=== PATIENT | female | born 1950 | race Caucasian/White ===

== ENCOUNTER → 2020-04-18 09:56 | Outpatient (BNVA) | payer MEDICARE, SELFPAY | PROVIDERS: PCP Internal Medicine; Visit Provider Surgery Vascular Surgery | DX: I83.11 Varicose veins of right lower extremity with inflammation (principal) | CPT/HCPCS: 99212 ==

== ENCOUNTER 2020-04-22 07:56 | Outpatient (REF) | payer MEDICARE, SELFPAY ==
--- NOTE | 2020-04-22 07:59 | US_ITS ---
EXAMINATION: BILATERAL LOWER EXTREMITY VENOUS ULTRASOUND (Reflux Exam) CLINICAL INDICATION: History of prior bilateral great saphenous venous closure in 2018 and 2019. COMPARISON: None. TECHNIQUE: Color flow triplex imaging and compression Doppler was performed to evaluate both the deep and the superficial systems bilaterally. To evaluate the superficial system, the examination was performed in the upright position. Color-flow Doppler ultrasound and compression ultrasound were utilized. In addition, maneuvers were utilized to demonstrate reflux. FINDINGS: 1. DEEP VENOUS ULTRASOUND OF THE RIGHT LOWER EXTREMITY: Common Femoral Vein: Compressible, normal respiratory variation and augmented flow. Femoral vein: Compressible, normal color flow and augmentation. Popliteal Vein: Compressible, normal augmentation. Deep Reflux: There is no evidence of reflux in the deep system in either the common femoral vein or the popliteal vein. . There is no evidence of a Fox's cyst. 2. SUPERFICIAL ULTRASOUND WITH DOPPLER OF RIGHT LOWER EXTREMITY GREAT SAPHENOUS VEIN: Saphenofemoral junction: 0.6 cm; No evidence of reflux. Proximal thigh: Occluded. Mid thigh: Occluded. Above knee: Occluded. At knee: 0.3 cm; No evidence of reflux. Below knee: 0.3 cm; greater than 3 seconds of reflux. Mid calf: 0.2 cm; better than 2.8 seconds of reflux. Ankle: 0.3 cm; No evidence of reflux. DUPLICATED GREAT SAPHENOUS VEIN: Medial, 0.4 cm at the junction, without reflux. SMALL SAPHENOUS VEIN: Saphenopopliteal junction: 0.5 cm; greater than 2.9 seconds of reflux. Mid calf: 0.4 cm; greater than 2.9 seconds of reflux. Distal calf: 0.2 cm; No evidence of reflux. VEIN OF GIACOMINI: None Imaged. PERFORATORS: Proximal calf, 0.2 cm, greater than 2.8 seconds of reflux. VARICOSITIES: Midcalf, 0.4 cm, no reflux. 3. DEEP VENOUS ULTRASOUND OF THE LEFT LOWER EXTREMITY: Common Femoral Vein: Compressible, normal respiratory variation and augmented flow. Femoral vein: Compressible, normal color flow and augmentation. Popliteal Vein: Compressible, normal augmentation. Deep Reflux: There is no evidence of reflux in the deep system in either the common femoral vein or the popliteal vein. There is no evidence of a Fox's cyst. 4. SUPERFICIAL ULTRASOUND WITH DOPPLER OF LEFT LOWER EXTREMITY GREAT SAPHENOUS VEIN: Saphenofemoral junction: 0.6 cm; greater than 2.3 seconds of reflux. Proximal thigh: 0.3 cm; greater than 1.7 seconds of reflux. Mid thigh: 0.7 cm; partially occluded. Above knee: 0.5 cm; greater than 2.9 seconds of reflux. At knee: 0.5 cm; greater than 3.1 seconds of reflux. Below knee: 0.6 cm; greater than 3.0 seconds of reflux. Mid calf: 0.4 cm; greater than 1.9 seconds of reflux. Ankle: 0.3 cm; greater than 2.4 seconds of reflux. DUPLICATED GREAT SAPHENOUS VEIN: Medial, 0.3 cm at the junction, no reflux. SMALL SAPHENOUS VEIN: Saphenopopliteal junction: 0.5 cm; greater than 3.1 seconds of reflux. Mid calf: 0.2 cm; greater than 2.8 seconds of reflux. Distal calf: 0.2 cm; No evidence of reflux. VEIN OF GIACOMINI: None Imaged. PERFORATORS: Midcalf arising from the distal SSV, 0.2 cm, no reflux. Proximal calf, 0.2 cm, no reflux. Proximal calf, 0.4 cm, no reflux. VARICOSITIES: None Imaged. US/US venous duplex LE BI IMPRESSION: 1. Venous reflux within the distal right great saphenous vein, below the knee and at the level of the midcalf. 2. Gross venous insufficiency throughout the left great saphenous vein. 3. Bilateral small saphenous venous insufficiency. 4. No evidence of DVT.
== END 2020-04-22 07:57 | disposition home or self-care (01) ==
LOC: HO.US 07:56
PROVIDERS: PCP Internal Medicine; Visit Provider Surgery Vascular Surgery
DX: I83.11 Varicose veins of right lower extremity with inflammation (principal)
CPT/HCPCS: 93970

== ENCOUNTER 2020-05-07 07:51 | Outpatient (REF) | payer MEDICARE, SELFPAY ==
[2020-05-07 11:37] LABS: D Dimer < 200 NG/ML
== END 2020-05-07 07:52 | disposition home or self-care (01) ==
LOC: HO.HMGCLDS 07:51
PROVIDERS: PCP Internal Medicine; Visit Provider Internal Medicine
DX: I83.12 Varicose veins of left lower extremity with inflammation (principal); I83.11 Varicose veins of right lower extremity with inflammation
CPT/HCPCS: 36415; 85379

== ENCOUNTER → 2020-05-09 10:56 | Outpatient (BNVA) | payer MEDICARE, SELFPAY | PROVIDERS: PCP Internal Medicine; Visit Provider Surgery Vascular Surgery | DX: I83.12 Varicose veins of left lower extremity with inflammation (principal) | CPT/HCPCS: 99212 ==

== ENCOUNTER → 2020-05-24 08:12 | Outpatient (BNVA) | payer MEDICARE, SELFPAY | PROVIDERS: PCP Internal Medicine; Visit Provider Surgery Vascular Surgery | DX: I83.12 Varicose veins of left lower extremity with inflammation (principal) | CPT/HCPCS: 36475 ==

== ENCOUNTER 2020-05-27 13:40 | Outpatient (REF) | payer MEDICARE, SELFPAY ==
--- NOTE | 2020-05-27 | US_ITS ---
EXAMINATION: US VENOUS ULTRASOUND WITH DOPPLER LOWER EXTREMITY, LEFT CLINICAL INFORMATION: Post left leg RFA. Rule out DVT. COMPARISON: Previous exams most recent April 2020 TECHNIQUE: Ultrasound of the deep veins is performed from the hip to the calf with compression sonography and color and pulse Doppler assessment. Spectral analysis with color-flow imaging is performed. FINDINGS: There is normal venous compression and respiratory variation and augmented flow. The visualized common femoral vein, superficial femoral vein, profunda femoral vein, popliteal vein, and the trifurcation region shows no evidence of deep venous thrombosis. There is echogenic material seen in the left greater saphenous vein 1.5 cm from the saphenofemoral junction post RFA procedure. There is no significant popliteal fossa cyst. US/US venous duplex LE LT IMPRESSION: No DVT demonstrated in the left lower extremity.
== END 2020-05-27 13:41 | disposition home or self-care (01) ==
LOC: HO.US 13:40
PROVIDERS: Visit Provider Surgery Vascular Surgery
DX: M79.605 Pain in left leg (principal)
CPT/HCPCS: 93971

== ENCOUNTER 2020-06-06 09:43 | Outpatient (REF) | payer OTHER, SELFPAY ==
[2020-06-06 11:29] LABS: Estimated Average Glucose 148 mg/dL; Hemoglobin A1c % 6.8 %
[2020-06-06 12:12] LABS: Alanine Aminotransferase 17 U/L (0-31); Albumin Level 4.4 g/dL (3.5-5.0); Alkaline Phosphatase 46 U/L (39-117); Anion Gap 15 (12-20); Aspartate Amino Transferase 15 U/L (5-31); Bilirubin Total 0.7 mg/dL (0.0-1.0); Blood Urea Nitrogen 22 mg/dL (9-16); Calcium 9.5 mg/dL (8.4-10.2); Carbon Dioxide 28 mmol/L (22-29); Chloride 103 mmol/L (96-108); Cholesterol 130 mg/dL; Estimated Glomerular Filt Rate 48; Glucose Fasting 155 mg/dL (60-99); HDL Cholesterol 42 mg/dL; LDL Cholesterol Calculated 59 mg/dl; Potassium 4.7 mmol/l (3.3-5.1); Sodium 141 mmol/L (135-145); Total Protein 7.3 g/dL (6.5-8.0); Triglycerides 148 mg/dL
[2020-06-06 12:27] LABS: Creatinine Urine 92.48 mg/dL; Microalbum/Creatinine Ratio Ur 6.4 ug/mg cr
== END 2020-06-06 09:44 | disposition home or self-care (01) ==
LOC: HO.HMGCLDS 09:43
PROVIDERS: PCP Internal Medicine; Visit Provider Internal Medicine
DX: I83.12 Varicose veins of left lower extremity with inflammation (principal); E11.9 Type 2 diabetes mellitus without complications; I10 Essential (primary) hypertension; E78.5 Hyperlipidemia, unspecified; Z88.8 Allergy status to other drugs, medicaments and biological substances; Z98.890 Other specified postprocedural states
CPT/HCPCS: 36415; 80053; 80061; 82043; 83036; 99212

== ENCOUNTER 2020-09-04 08:05 | Outpatient (REF) | payer OTHER, SELFPAY ==
[2020-09-04 12:06] LABS: Alanine Aminotransferase 17 U/L (0-31); Albumin Level 4.2 g/dL (3.5-5.0); Alkaline Phosphatase 49 U/L (39-117); Anion Gap 15 (12-20); Aspartate Amino Transferase 13 U/L (5-31); Bilirubin Total 0.6 mg/dL (0.0-1.0); Blood Urea Nitrogen 17 mg/dL (9-16); Calcium 9.6 mg/dL (8.4-10.2); Carbon Dioxide 27 mmol/L (22-29); Chloride 103 mmol/L (96-108); Estimated Glomerular Filt Rate 48; Glucose Fasting 161 mg/dL (60-99); Potassium 4.8 mmol/L (3.3-5.1); Sodium 140 mmol/L (135-145); Total Protein 7.2 g/dL (6.5-8.0)
[2020-09-04 12:33] LABS: Estimated Average Glucose 146 mg/dL; Hemoglobin A1c % 6.7 %
== END 2020-09-04 08:06 | disposition home or self-care (01) ==
LOC: HO.HMGCLDS 08:05
PROVIDERS: PCP Internal Medicine; Visit Provider Internal Medicine
DX: E11.9 Type 2 diabetes mellitus without complications (principal); I10 Essential (primary) hypertension
CPT/HCPCS: 36415; 80053; 83036

== ENCOUNTER 2020-12-05 08:01 | Outpatient (REF) | payer OTHER, SELFPAY ==
[2020-12-05 11:43] LABS: Creatinine Urine 35.66 mg/dL; Microalbumin Urine < 5.0 mg/L
[2020-12-05 11:51] LABS: Hematocrit 39.9 % (37-47); Hemoglobin 12.6 g/dl (12.0-16.0); Mean Corpuscular HGB Conc 31.6 g/dl (31.0-35.0); Mean Corpuscular Hemoglobin 28.3 pg (27.0-33.0); Mean Corpuscular Volume 89.5 fL (80-98); Mean Platelet Volume 10.6 fL (9.4-12.3); Platelet Count 195 X10*3/uL (160-400); Red Blood Count 4.46 X10*6/uL (4.20-5.50); Red Cell Distribution Width 13.6 % (11.0-16.0); White Blood Count 6.4 X10*3/uL (4.8-10.8)
[2020-12-05 11:54] LABS: Estimated Average Glucose 146 mg/dL; Hemoglobin A1c % 6.7 %
[2020-12-05 12:06] LABS: Alanine Aminotransferase 16 U/L (0-31); Albumin Level 3.9 g/dL (3.5-5.0); Alkaline Phosphatase 45 U/L (39-117); Anion Gap 12 (12-20); Aspartate Amino Transferase 15 U/L (5-31); Bilirubin Total 0.7 mg/dL (0.0-1.0); Blood Urea Nitrogen 11 mg/dL (9-16); Calcium 9.5 mg/dL (8.4-10.2); Carbon Dioxide 26 mmol/L (22-29); Chloride 108 mmol/L (96-108); Cholesterol 157 mg/dL; Estimated Glomerular Filt Rate 56; Glucose Fasting 135 mg/dL (60-99); HDL Cholesterol 43 mg/dL; LDL Cholesterol Calculated 86 mg/dl; Potassium 4.3 mmol/L (3.3-5.1); Sodium 142 mmol/L (135-145); Total Protein 6.7 g/dL (6.5-8.0); Triglycerides 142 mg/dL
== END 2020-12-05 08:02 | disposition home or self-care (01) ==
LOC: HO.HMGCLDS 08:01
PROVIDERS: PCP Internal Medicine; Visit Provider Internal Medicine
DX: E11.9 Type 2 diabetes mellitus without complications (principal); E78.5 Hyperlipidemia, unspecified; I10 Essential (primary) hypertension
CPT/HCPCS: 36415; 80053; 80061; 82043; 83036; 85027

== ENCOUNTER 2020-12-17 12:57 | Outpatient (REF) | payer OTHER, SELFPAY ==
--- NOTE | ~2020-12-17 | MM_ITS ---
EXAMINATION: MM SCREENING DIGITAL BREAST TOMOSYNTHESIS, BILATERAL CLINICAL INFORMATION: Screening. Asymptomatic. The lifetime risk of breast cancer based on the Tyrer-Cuzick Model is 6%. COMPARISON: Mammography: 12/12/2019, 09/11/2017, 08/18/2016 TECHNIQUE: Digital breast tomosynthesis is performed in both the craniocaudal and mediolateral oblique views along with computer-aided detection (CAD). Synthesized 2D images are generated from the tomosynthesis. FINDINGS: There are scattered areas of fibroglandular density (ACR BI-RADS breast composition Category b). There are no significant masses, abnormal calcifications, or other abnormalities. Parenchymal pattern is similar to prior studies. No developing density. No significant changes. MM/MM tomosynthesis screening BI IMPRESSION: No mammographic evidence of malignancy. ASSESSMENT: BI-RADS 1: Negative RECOMMENDATION: Routine annual mammography screening. This patient's information was entered into a reminder system with a target due date for their next mammogram.
== END 2020-12-17 12:58 | disposition home or self-care (01) ==
LOC: HO.MAMMO 12:57
PROVIDERS: Visit Provider Internal Medicine
DX: Z12.31 Encounter for screening mammogram for malignant neoplasm of breast (principal)
CPT/HCPCS: 77063; 77067

== ENCOUNTER 2021-03-14 08:43 | Outpatient (REF) | payer OTHER, SELFPAY ==
[2021-03-14 12:04] LABS: Estimated Average Glucose 148 mg/dL; Hemoglobin A1c % 6.8 %
[2021-03-14 12:06] LABS: Alanine Aminotransferase 17 U/L (0-31); Albumin Level 4.1 g/dL (3.5-5.0); Alkaline Phosphatase 50 U/L (39-117); Anion Gap 14 (12-20); Aspartate Amino Transferase 16 U/L (5-31); Blood Urea Nitrogen 16 mg/dL (9-16); Calcium 9.4 mg/dL (8.4-10.2); Carbon Dioxide 25 mmol/L (22-29); Chloride 105 mmol/L (96-108); Cholesterol 162 mg/dL; Estimated Glomerular Filt Rate 47; Glucose Fasting 156 mg/dL (60-99); HDL Cholesterol 40 mg/dL; LDL Cholesterol Calculated 81 mg/dl; Potassium 4.4 mmol/L (3.3-5.1); Sodium 140 mmol/L (135-145); Total Protein 7.1 g/dL (6.5-8.0); Triglycerides 207 mg/dL
[2021-03-14 12:34] LABS: Creatinine Urine 45.96 mg/dL; Microalbumin Urine < 5.0 mg/L
== END 2021-03-14 08:44 | disposition home or self-care (01) ==
LOC: HO.HMGCLDS 08:43
PROVIDERS: PCP Internal Medicine; Visit Provider Internal Medicine
DX: E78.5 Hyperlipidemia, unspecified (principal); I10 Essential (primary) hypertension; E11.9 Type 2 diabetes mellitus without complications
CPT/HCPCS: 36415; 80053; 80061; 82043; 83036

== ENCOUNTER 2021-07-11 08:20 | Outpatient (REF) | payer OTHER, SELFPAY ==
[2021-07-11 12:02] LABS: Creatinine Urine 45.86 mg/dL; Microalbumin Urine < 5.0 mg/L
[2021-07-11 12:05] LABS: Alanine Aminotransferase 17 U/L (0-31); Albumin Level 4.2 g/dL (3.5-5.0); Alkaline Phosphatase 53 U/L (39-117); Anion Gap 14 (12-20); Aspartate Amino Transferase 16 U/L (5-31); Bilirubin Total 0.9 mg/dL (0.0-1.0); Blood Urea Nitrogen 20 mg/dL (9-16); Calcium 10.2 mg/dL (8.4-10.2); Carbon Dioxide 28 mmol/L (22-29); Chloride 100 mmol/L (96-108); Cholesterol 139 mg/dL; Estimated Glomerular Filt Rate 47; Glucose Fasting 160 mg/dL (60-99); HDL Cholesterol 38 mg/dL; LDL Cholesterol Calculated 64 mg/dl; Sodium 137 mmol/L (135-145); Total Protein 7.4 g/dL (6.5-8.0); Triglycerides 185 mg/dL
[2021-07-11 12:08] LABS: Estimated Average Glucose 157 mg/dL; Hemoglobin A1c % 7.1 %
== END 2021-07-11 08:21 | disposition home or self-care (01) ==
LOC: HO.HMGCLDS 08:20
PROVIDERS: Visit Provider Internal Medicine
DX: E11.9 Type 2 diabetes mellitus without complications (principal); I10 Essential (primary) hypertension; E78.5 Hyperlipidemia, unspecified
CPT/HCPCS: 36415; 80053; 80061; 82043; 83036

== ENCOUNTER 2021-12-19 09:47 | Outpatient (REF) | payer OTHER, SELFPAY ==
--- NOTE | ~2021-12-19 | MM_ITS ---
EXAMINATION: MM SCREENING DIGITAL BREAST TOMOSYNTHESIS, BILATERAL CLINICAL INFORMATION: Screening. Asymptomatic. The lifetime risk of breast cancer based on the Tyrer-Cuzick Model is 6%. COMPARISON: Mammography: 12/17/2020, 12/12/2019, 09/11/2017 TECHNIQUE: Digital breast tomosynthesis is performed in both the craniocaudal and mediolateral oblique views along with computer-aided detection (CAD). Synthesized 2D images are generated from the tomosynthesis. Additional left CC view is provided. FINDINGS: There are scattered areas of fibroglandular density (ACR BI-RADS breast composition Category b). There is no significant mass and no architectural abnormality or developing density or abnormal calcifications. The axilla are unremarkable. There is mild chronic nipple retraction as before. No skin thickening. No significant changes. MM/MM tomosynthesis screening BI IMPRESSION: No significant changes from prior studies. ASSESSMENT: BI-RADS 2: Benign RECOMMENDATION: Routine annual mammography screening. This patient's information was entered into a reminder system with a target due date for their next mammogram.
== END 2021-12-19 09:48 | disposition home or self-care (01) ==
LOC: HO.MAMMO 09:47
PROVIDERS: PCP Internal Medicine; Visit Provider Internal Medicine
DX: Z12.31 Encounter for screening mammogram for malignant neoplasm of breast (principal)
CPT/HCPCS: 77063; 77067

== ENCOUNTER 2021-12-29 09:11 | Outpatient (REF) | payer OTHER, SELFPAY ==
[2021-12-29 11:37] LABS: Estimated Average Glucose 151 mg/dL; Hemoglobin A1c % 6.9 %
[2021-12-29 11:39] LABS: Appearance Urine Clear; Color Urine Yellow; Glucose Urine UA >=1000 mg/dL (Negative); Hematocrit 42.9 % (37.0-47.0); Leukocyte Esterase Urine Small (1+) (Negative); Mean Corpuscular HGB Conc 32.6 g/dl (31.0-35.0); Mean Corpuscular Hemoglobin 28.9 pg (27.0-33.0); Mean Corpuscular Volume 88.5 fL (80.0-98.0); Mean Platelet Volume 10.6 fL (9.4-12.3); Nitrite Urine Negative (Negative); Platelet Count 222 X10*3/uL (160-400); Red Blood Count 4.85 X10*6/uL (4.20-5.50); Red Cell Distribution Width 13.1 % (11.0-16.0); Urine Blood Negative (Negative); Urine Ketones Negative (Negative); Urine Protein Negative (Neg-Trace); White Blood Count 7.7 X10*3/uL (4.8-10.8)
[2021-12-29 11:57] LABS: Bacteria Urine None Seen (None Seen); Hyaline Casts Urine 0-2 /LPF (0-2); RBC Urine 0-2 /HPF (0-2); UACC Culture Trigger YES; WBC Urine 0-5 /HPF (0-5)
[2021-12-29 12:03] LABS: Alanine Aminotransferase 15 U/L (0-31); Albumin Level 4.1 g/dL (3.5-5.0); Alkaline Phosphatase 52 U/L (39-117); Anion Gap 16 (12-20); Aspartate Amino Transferase 14 U/L (5-31); Bilirubin Total 0.5 mg/dL (0.0-1.0); Blood Urea Nitrogen 20 mg/dL (9-16); Carbon Dioxide 25 mmol/L (22-29); Chloride 101 mmol/L (96-108); Cholesterol 162 mg/dL; Estimated Glomerular Filt Rate 48; Glucose Fasting 154 mg/dL (60-99); HDL Cholesterol 43 mg/dL; LDL Cholesterol Calculated 87 mg/dl; Potassium 5.1 mmol/L (3.3-5.1); Sodium 137 mmol/L (135-145); Total Protein 7.2 g/dL (6.5-8.0); Triglycerides 160 mg/dL
[2021-12-29 13:59] LABS: Creatinine Urine 73.14 mg/dL; Microalbumin Urine < 5.0 mg/L
== END 2021-12-29 09:12 | disposition home or self-care (01) ==
LOC: HO.HMGCLDS 09:11
PROVIDERS: PCP Internal Medicine; Visit Provider Internal Medicine
DX: E78.5 Hyperlipidemia, unspecified (principal); I10 Essential (primary) hypertension; E11.9 Type 2 diabetes mellitus without complications
CPT/HCPCS: 36415; 80053; 80061; 81001; 82043; 83036; 85027; 87086

== ENCOUNTER 2022-01-09 13:14 | Outpatient (REF) | payer OTHER, SELFPAY ==
--- NOTE | ~2022-01-09 | MM_ITS ---
EXAMINATION: BONE DENSITOMETRY CLINICAL INDICATION: Asymptomatic menopausal state. COMPARISON: None (current study represents initial baseline exam). TECHNIQUE: Using a FAB BAG DXA System (software version: 13.1) manufactured by [employer], dual-energy x-ray absorptiometry was performed of the lumbar spine and left hip. The images are of good technical quality. Summary results are attached. FINDINGS: AP SPINE L1-L3 (excluding L4): The data of L1-L4 has been changed to exclude the L4 vertebral body, because degenerative changes at this level may cause overestimation of lumbar spine density. BMD 1.119 g/cm2, Z-score 1.2, T-score -0.4, normal. LEFT FEMUR, NECK: BMD 0.836 g/cm2, Z-score 0.2, T-score -1.5, osteopenia. LEFT FEMUR, TOTAL: BMD 0.957 g/cm2, Z-score 1.1, T-score -0.4, normal. IDENTIFIED RISK FACTORS: Menopause, height loss, thiazide. HISTORY OF FRACTURE: None listed. MEDICATIONS: Calcium supplements or multivitamin, vitamin D. MM/XR DEXA axial skeleton IMPRESSION: 1. DIAGNOSIS: Osteopenia based on the lowest T-score value of -1.5 in the femoral neck applying World Health Organization criteria. 2. 10-YEAR FRACTURE RISK PREDICTION, FRAX: Major osteoporotic fracture (clinical spine, forearm, hip or shoulder) 10.3%. Hip fracture 1.6%. 3. Treatment Recommendations: NOF guidelines recommend consideration for treatment in postmenopausal women and men age 50 and older presenting with the following: -A hip or vertebral (clinical or morphometric) fracture. -T-score less than or equal to -2.5 at the femoral neck or spine after appropriate evaluation to exclude secondary causes. -Low bone mass at the hip or spine and a 10-year fracture probability by FRAX of greater than or equal to 3% for hip fracture or greater than or equal to 20% for major osteoporotic fracture based on the [place] adapted WHO algorithm. 4. Other Recommendations: All treatment decisions require clinical judgment and consideration of individual patient factors, including patient preferences, comorbidities, previous drug use, risk factors not captured in the FRAX model (e.g. frailty, falls, vitamin D deficiency, increased bone turnover, interval significant decline in bone density) and possible under or overestimation of fracture risk by FRAX. Additional medical evaluation for secondary cause of low bone mineral density may be appropriate. FUTURE SCAN RECOMMENDATION: People with diagnosed cases of osteoporosis or at high risk for fracture should have regular bone mineral density tests. For patients eligible for Medicare, routine testing is allowed once every 2 years. The testing frequency can be increased to one year for patients who have rapidly progressing disease, those who are receiving or discontinuing medical therapy to restore bone mass, or have additional risk factors.
== END 2022-01-09 13:15 | disposition home or self-care (01) ==
LOC: HO.MAMMO 13:14
PROVIDERS: PCP Internal Medicine; Visit Provider Internal Medicine
DX: Z13.820 Encounter for screening for osteoporosis (principal); Z78.0 Asymptomatic menopausal state
CPT/HCPCS: 77080

== ENCOUNTER → 2022-01-15 09:16 | Outpatient (BNVA) | payer OTHER, SELFPAY | PROVIDERS: PCP Internal Medicine; Visit Provider Surgery Vascular Surgery | DX: I83.12 Varicose veins of left lower extremity with inflammation (principal) | CPT/HCPCS: 99212 ==

== ENCOUNTER 2022-03-18 07:48 | Outpatient (REF) | payer OTHER, SELFPAY ==
--- NOTE | ~2022-03-18 | US_ITS ---
EXAMINATION: US VENOUS BILATERAL LOWER EXTREMITIES (REFLUX EXAM) CLINICAL INDICATION: Leg pain and varicose veins. History of bilateral VenaSeal procedures. COMPARISON: None TECHNIQUE: Color flow triplex imaging and compression Doppler was performed to evaluate both the deep and the superficial systems bilaterally. To evaluate the superficial system, the examination was performed in the upright position. Color-flow Doppler ultrasound and compression ultrasound were utilized. In addition, maneuvers were utilized to demonstrate reflux. FINDINGS: 1. DEEP VENOUS ULTRASOUND OF THE RIGHT LOWER EXTREMITY: Respiratory variation, normal compression and augmented flow are noted in the right common femoral vein as well as the right popliteal vein and there is no evidence of deep venous thrombosis at these locations. There is reflux of 2.8 seconds in the popliteal vein without reflux in the common femoral or femoral vein. There is no evidence of a Fox's cyst. 2. SUPERFICIAL ULTRASOUND WITH DOPPLER OF RIGHT LOWER EXTREMITY: The right great saphenous vein at the saphenofemoral junction measures 4.6 mm, at the proximal thigh 3.0 mm, at the mid thigh 1.4 mm, above the knee, occluded, at the knee 1.9 mm, gamtr-csv-cyrh 2.3 mm, midcalf 2.5 mm and at the ankle measures 3.1 mm. There is no reflux demonstrated in the right great saphenous vein. Duplicated Right Great Saphenous Vein: There is a 3.2 mm lateral saphenous vein that does not reflux. The right small saphenous vein measures 4.1 mm and demonstrates reflux from the mid calf downwards with reflux times of 3.5 seconds. Accessory Vein of Giacomini: None Incompetent Perforators: None Varices Present: None 3. DEEP VENOUS ULTRASOUND OF THE LEFT LOWER EXTREMITY: Respiratory variation, normal compression and augmented flow are noted in the left common femoral vein as well as the left popliteal vein and there is no evidence of deep venous thrombosis at these locations. There is no evidence of reflux in the deep system in either the common femoral vein or the popliteal vein. There is no evidence of a Fox's cyst. 4. SUPERFICIAL ULTRASOUND WITH DOPPLER OF LEFT LOWER EXTREMITY: Left great saphenous vein at the saphenofemoral junction measures 4.5 mm, at the proximal thigh 4.5 mm, at the mid thigh occluded, above the knee 4.0 mm, at the knee 4.0 mm, vcddi-iht-piop 4.9 mm, midcalf 3.3 mm and at the ankle measures 2.3 mm. Segmental reflux is present above the knee for 3.5 seconds and at the ankle for 2.5 seconds. Duplicated Left Great Saphenous Vein: There is a lateral accessory saphenous measuring 3.2 mm without reflux. The left small saphenous vein measures 4.0 mm and shows no reflux. Accessory Vein of Giacomini: None Incompetent Perforators: None Varices Present: Varicosities are present in the calf measuring up to 5 mm in size which demonstrate 3.4 seconds of reflux. US/US venous duplex LE BI IMPRESSION: 1. No DVT but there is reflux in the deep venous system on the right in the popliteal vein. Left deep venous system unremarkable. 2. Segmental occlusions in the great saphenous veins status post ablation with segmental areas of reflux remaining as described above.
== END 2022-03-18 07:49 | disposition home or self-care (01) ==
LOC: HO.US 07:48
PROVIDERS: Visit Provider Surgery Vascular Surgery
DX: I83.12 Varicose veins of left lower extremity with inflammation (principal)
CPT/HCPCS: 93970

== ENCOUNTER → 2022-03-26 08:55 | Outpatient (BNVA) | payer OTHER, SELFPAY | PROVIDERS: PCP Internal Medicine; Visit Provider Surgery Vascular Surgery | DX: I83.11 Varicose veins of right lower extremity with inflammation (principal); I83.12 Varicose veins of left lower extremity with inflammation | CPT/HCPCS: 99212 ==

== ENCOUNTER 2022-04-06 07:44 | Outpatient (REF) | payer OTHER, SELFPAY ==
[2022-04-06 12:00] LABS: Estimated Average Glucose 154 mg/dL
[2022-04-06 12:28] LABS: Alanine Aminotransferase 18 U/L (0-31); Albumin Level 4.3 g/dL (3.5-5.0); Alkaline Phosphatase 58 U/L (39-117); Anion Gap 17 (12-20); Aspartate Amino Transferase 14 U/L (5-31); Bilirubin Total 0.9 mg/dL (0.0-1.0); Blood Urea Nitrogen 23 mg/dL (9-16); Calcium 9.8 mg/dL (8.4-10.2); Carbon Dioxide 24 mmol/L (22-29); Chloride 100 mmol/L (96-108); Estimated Glomerular Filt Rate 48; Glucose Fasting 173 mg/dL (60-99); Potassium 4.5 mmol/L (3.3-5.1); Sodium 136 mmol/L (135-145); Total Protein 7.4 g/dL (6.5-8.0)
== END 2022-04-06 07:45 | disposition home or self-care (01) ==
LOC: HO.HMGCLDS 07:44
PROVIDERS: PCP Internal Medicine; Visit Provider Internal Medicine
DX: E11.9 Type 2 diabetes mellitus without complications (principal)
CPT/HCPCS: 36415; 80053; 83036

== ENCOUNTER 2022-08-12 08:18 | Outpatient (REF) | payer OTHER, SELFPAY ==
[2022-08-12 11:20] LABS: MANUAL DIFF FLAG NO
[2022-08-12 11:44] LABS: Basophils Percent Auto 0.4 % (0-2); Eosinophils Absolute Auto 0.2 X10*3/uL (0.0-0.4); Eosinophils Percent Auto 3.1 % (0-4); Hematocrit 40.2 % (37.0-47.0); Hemoglobin 13.2 g/dl (12.0-16.0); Imm Gran Abs Auto 0.01 X10*3/uL (0.00-0.03); Imm Gran Pct Auto 0.1 % (0.0-0.4); Lymphocytes Percent Auto 29.3 % (20-40); Mean Corpuscular HGB Conc 32.8 g/dl (31.0-35.0); Mean Corpuscular Hemoglobin 28.9 pg (27.0-33.0); Mean Platelet Volume 10.4 fL (9.4-12.3); Monocytes Absolute Auto 0.5 X10*3/uL (0.1-1.2); Monocytes Percent Auto 6.9 % (2-11); Neutrophils Percent Auto 60.2 % (45-73); Platelet Count 232 X10*3/uL (160-400); Red Blood Count 4.57 X10*6/uL (4.20-5.50); Red Cell Distribution Width 13.4 % (11.0-16.0); White Blood Count 6.7 X10*3/uL (4.8-10.8)
[2022-08-12 11:51] LABS: Alanine Aminotransferase 15 U/L (0-31); Alkaline Phosphatase 44 U/L (39-117); Anion Gap 12 (12-20); Aspartate Amino Transferase 16 U/L (5-31); Bilirubin Total 0.8 mg/dL (0.0-1.0); Blood Urea Nitrogen 17 mg/dL (9-16); Calcium 9.5 mg/dL (8.4-10.2); Carbon Dioxide 26 mmol/L (22-29); Chloride 106 mmol/L (96-108); Cholesterol 145 mg/dL; Estimated Glomerular Filt Rate 55; Glucose Fasting 148 mg/dL (60-99); HDL Cholesterol 45 mg/dL; LDL Cholesterol Calculated 75 mg/dl; Potassium 4.8 mmol/L (3.3-5.1); Sodium 139 mmol/L (135-145); Total Protein 6.6 g/dL (6.5-8.0); Triglycerides 126 mg/dL
[2022-08-12 11:55] LABS: Estimated Average Glucose 151 mg/dL; Hemoglobin A1c % 6.9 %
[2022-08-12 12:33] LABS: Creatinine Urine 59.75 mg/dL; Microalbumin Urine < 5.0 mg/L
== END 2022-08-12 08:19 | disposition home or self-care (01) ==
LOC: HO.HMGCLDS 08:18
PROVIDERS: PCP Internal Medicine; Visit Provider Internal Medicine
DX: E11.9 Type 2 diabetes mellitus without complications (principal); E78.5 Hyperlipidemia, unspecified; I10 Essential (primary) hypertension
CPT/HCPCS: 36415; 80053; 80061; 82043; 83036; 85025

== ENCOUNTER 2023-01-15 08:24 | Outpatient (REF) | payer OTHER, SELFPAY ==
[2023-01-15 11:11] LABS: MANUAL DIFF FLAG NO
[2023-01-15 11:33] LABS: Basophils Percent Auto 0.4 % (0-2); Eosinophils Absolute Auto 0.1 X10*3/uL (0.0-0.4); Imm Gran Abs Auto 0.02 X10*3/uL (0.00-0.03); Imm Gran Pct Auto 0.3 % (0.0-0.4); Lymphocytes Absolute Auto 2.2 X10*3/uL (1.2-4.9); Lymphocytes Percent Auto 31.2 % (20-40); Mean Corpuscular HGB Conc 32.6 g/dl (31.0-35.0); Mean Corpuscular Hemoglobin 28.8 pg (27.0-33.0); Mean Corpuscular Volume 88.5 fL (80.0-98.0); Mean Platelet Volume 10.4 fL (9.4-12.3); Monocytes Absolute Auto 0.4 X10*3/uL (0.1-1.2); Monocytes Percent Auto 5.8 % (2-11); Neutrophils Absolute Auto 4.2 x10*3/uL (2.0-8.3); Neutrophils Percent Auto 60.3 % (45-73); Platelet Count 230 X10*3/uL (160-400); Red Blood Count 4.86 X10*6/uL (4.20-5.50); Red Cell Distribution Width 13.6 % (11.0-16.0)
[2023-01-15 11:48] LABS: Estimated Average Glucose 148 mg/dL; Hemoglobin A1c % 6.8 % (<6.0)
[2023-01-15 11:59] LABS: Alanine Aminotransferase 18 U/L (0-31); Alkaline Phosphatase 49 U/L (39-117); Anion Gap 12 (12-20); Aspartate Amino Transferase 15 U/L (5-31); Bilirubin Total 0.6 mg/dL (0.0-1.0); Blood Urea Nitrogen 15 mg/dL (9-16); Calcium 9.8 mg/dL (8.4-10.2); Carbon Dioxide 26 mmol/L (22-29); Chloride 105 mmol/L (96-108); Cholesterol 157 mg/dL (<200); Estimated Glomerular Filt Rate 50; Glucose Fasting 169 mg/dL (60-99); HDL Cholesterol 43 mg/dL (>40); LDL Cholesterol Calculated 72 mg/dL (<100); Potassium 4.3 mmol/L (3.3-5.1); Sodium 139 mmol/L (135-145); Total Protein 7.1 g/dL (6.5-8.0); Triglycerides 212 mg/dL (<150)
[2023-01-15 13:07] LABS: Microalbumin Urine < 5.0 mg/L
== END 2023-01-15 08:25 | disposition home or self-care (01) ==
LOC: HO.HMGCLDS 08:24
PROVIDERS: PCP Internal Medicine; Visit Provider Internal Medicine
DX: I10 Essential (primary) hypertension (principal); E11.9 Type 2 diabetes mellitus without complications; E78.5 Hyperlipidemia, unspecified
CPT/HCPCS: 36415; 80053; 80061; 82043; 82570; 83036; 85025

== ENCOUNTER 2023-01-16 09:47 | Outpatient (REF) | payer OTHER, SELFPAY ==
--- NOTE | ~2023-01-16 | MM_ITS ---
EXAMINATION: MM SCREENING DIGITAL BREAST TOMOSYNTHESIS, BILATERAL CLINICAL INFORMATION: Screening. Asymptomatic. COMPARISON: Mammography: This study is compared with prior exams dating back to 2017. TECHNIQUE: Digital breast tomosynthesis is performed in both the craniocaudal and mediolateral oblique views along with computer-aided detection (CAD). Synthesized 2D images are generated from the tomosynthesis. FINDINGS: There are scattered areas of fibroglandular density (ACR BI-RADS breast composition Category b). There are no significant masses, abnormal calcifications, or other abnormalities. There is chronic, bilateral, benign nipple inversion. MM/MM tomosynthesis screening BI IMPRESSION: No mammographic evidence of malignancy. ASSESSMENT: BI-RADS BI-RADS 1 - Negative RECOMMENDATION: Routine annual mammography screening. 1 year F/U This examination should not preclude the clinical evaluation of a suspicious palpable abnormality. This patient's information was entered into a reminder system with a target due date for their next mammogram.
== END 2023-01-16 09:48 | disposition home or self-care (01) ==
LOC: HO.MAMMO 09:47
PROVIDERS: PCP Internal Medicine; Visit Provider Internal Medicine
DX: Z12.31 Encounter for screening mammogram for malignant neoplasm of breast (principal)
CPT/HCPCS: 77063; 77067

== ENCOUNTER → 2023-01-16 10:00 | Outpatient (BNV) | payer OTHER, SELFPAY | PROVIDERS: PCP Internal Medicine; Visit Provider Radiology Diagnostic Radiology | DX: Z12.31 Encounter for screening mammogram for malignant neoplasm of breast (principal) | CPT/HCPCS: 77063; 77067 ==

== ENCOUNTER 2023-01-20 12:44 | Outpatient (AMB) | payer OTHER, SELFPAY ==
--- NOTE | 2023-01-20 12:47 | MHC.PC.OV ---
Vital Signs 01/20/23 12:48 Height 5 ft 3 in Weight 149 lb BMI 26.4 BP 122/74 Blood Pressure Location Lt brachial Position Sitting Pulse 62 Pulse Source Pulse Oximeter Pulse Oximetry (%) 95 Oxygen Delivery Method Room Air Intake Visit Reasons: Annual PE/DM 2 Intake Note: Pt is here today for PE. Allergies lisinopril Allergy (Unknown, Verified 01/20/23 12:50) Cough Medication List - Last Reconciled 01/20/23 by Marysol Jefferson MD amlodipine-olmesartan 5-20 mg 1 tab PO DAILY atorvastatin 40 mg PO DAILY blood sugar diagnostic (FreeStyle Lite Strips) 1 strip miscellaneous DAILY blood-glucose meter (FreeStyle Lite Meter kit) use device to test blood sugar twice daily dimethicone 1.5% (Remedy Skin Repair) 1 appl topically with each episode of incontinence care; empagliflozin-linagliptin 25-5 mg (Glyxambi) 1 tab PO DAILY estradiol 0.01%(0.1mg/gram) (Estrace) 1 g vaginal 2XW famotidine (Pepcid) 20 mg PO DAILY fluconazole 150 mg PO Q3D 2 doses hydrochlorothiazide 25 mg PO DAILY incontinence pad, liner, disp As directed lancets (FreeStyle Lancets) use 1 needle to test blood sugar twice daily metformin ER 1,500 mg (2 x 750 mg) PO DAILY metoprolol tartrate 50 mg PO DAILY mirabegron ER (Myrbetriq) 25 mg PO DAILY miscellaneous medical supply 1 ea miscellaneous .QD valacyclovir (Valtrex) 2,000 mg (2 x 1 gram) PO Q12H Tobacco use date assessed: 01/20/23 Fall risk assessment: No Falls in past year Last assessed Fall Risk: 01/20/23 Dental Screening Dental Screen Date: 01/20/23 Did you have a dental visit in the last 12 months?: Yes Did you have a dental problem in the last 6 months where you did not have access to dental care?: No Was dental information given to patient?: Patient has dentist HPI Annual PE/DM 2 HPI Details Pt presents for PE. PFSH Medical History Annual physical exam Hyperlipemia Diabetes (~03/17/21) HTN (hypertension) Surgical History Status post ablation of incompetent vein using laser H/O colonoscopy Status post total shoulder arthroplasty Family History Father No problems noted. Mother No problems noted. Son No problems noted. Daughter No problems noted. Social History Housing: House Patient Tobacco Use Status: Never used Tobacco e-Cigarette/Vaping Use: Never Used Current occupational status: retired Cognitive needs: No Hearing needs: No Vision needs: No Questionnaire PHQ-9 Over the last 2 weeks, how often have you been bothered by any of the following problems? 1. Little interest or pleasure in doing things: not at all 2. Feeling down, depressed, or hopeless: not at all 3. Trouble falling or staying asleep, or sleeping too much: not at all 4. Feeling tired or having little energy: not at all 5. Poor appetite or overeating: not at all 6. Feeling bad about yourself - or that you are a failure or have let yourself or your family down: not at all 7. Trouble concentrating on things, such as reading the newspaper or watching television: not at all 8. Moving or speaking so slowly that other people could have noticed. Or the opposite - being so fidgety or restless that you have been moving around a lot more than usual: not at all 9. Thoughts that you would be better off or of hurting yourself in some way: not at all Total score: 0 Depression Screening Interpretation: Negative Source: Developed by Drs. Chico Colby, Winifred Lloyd, Eldon Berg and colleagues, with an educational sandra from [employer]. Thrive Questionnaire Date Thrive assessed: 01/20/23 I am a: Patient What is your living situation today?: I have a steady place to live Within the past 12 months, did the food you bought not last and you didn't have the money to get more?: Never true Within the past 12 months, did you worry whether your food would run out before you got money to buy more?: Never true Do you have trouble paying for medicines?: No Do you have trouble getting transportation to medical appointments?: No Do you have trouble paying your heating and electricity bill?: No Do you have trouble taking care of your child, family member or friend?: No Do you have trouble with day-to-day activities such as bathing, preparing meals, shopping, managing finances, etc.?: No Are you currently unemployed and looking for a job?: No Are you interested in more education?: No Please select the resources that you would like help with: None Currently or been in a relationship where the following occur: no concerns reported AUDIT C Alcohol Use Questionnaire (AUDIT-C) 1. How often do you have a drink containing alcohol?: Never 3. How often do you have six or more drinks on one occasion?: Never Total Score: 0 LALITA-7 AMB Questionnaire LALITA-7 Date LALITA - 7 assessed: 01/20/23 Feeling nervous, anxious, or on edge: 0 = Not at all Not being able to stop or control worryin = Not at all Worrying too much about different things: 0 = Not at all Trouble relaxin = Not at all Being so restless that it is hard to sit still: 0 = Not at all Becoming easily annoyed or irritable: 0 = Not at all Feeling afraid as if something awful might happen: 0 = Not at all Total LALITA-7 score (0-4 normal; 5-9 mild; 10-14 moderate; 15-21 severe): 0 Source: Developed by Drs. Chico Colby, Winifred Lloyd, Eldon Berg and colleagues, with an educational sandra from [employer]. Review of Systems Const All systems reviewed & are unremarkable except as noted in HPI and below Reports no additional complaints Eyes Reports no additional complaints ENT Reports no additional complaints Card Reports no additional complaints Resp Reports no additional complaints GI Reports no additional complaints Reports no additional complaints Physical exam (Primary Care) Vital Signs: Last Vital Signs Pulse 62 01/20/23 12:48 BP 122/74 01/20/23 12:48 Pulse Ox 95 01/20/23 12:48 Oxygen Delivery Method Room Air 01/20/23 12:48 BMI result Body Mass Index 26.4 Tobacco/Smoking Status: Tobacco use Status Tobacco use date assessed 01/20/23 01/20/23 12:54 Patient Tobacco Use Status Never used Tobacco 01/20/23 12:54 e-Cigarette/Vaping Use Never Used 01/20/23 12:48 PHQ-9: PHQ-9 Score PHQ-9: Total score 0 01/20/23 13:22 Depression Screening Interpretation: Negative Thrive Assessment: Date of Thrive Assessment Date Thrive assessed 01/20/23 01/20/23 12:59 Currently or been in a relationship where the following occur: no concerns reported Const General: no acute distress HENMT Head: Yes normal to inspection Ears: hearing grossly normal bilaterally General nose exam: Normal external nose present Mouth: Normal oral and palatal mucosa present Eyes General: appearance normal, both eyes and all related structures Neck Neck: Yes no lymphadenopathy and Yes supple Resp Effort & Inspection: normal respiratory effort Auscultation: clear to auscultation bilaterally Cardio Rhythm: regular rhythm Heart sounds: S1 normal heart sound present and S2 normal heart sound present GI Inspection: Yes normal to inspection Palpation (GI): Soft to palpation Percussion: Yes normal to percussion Auscultation: normal bowel sounds Assessment and Plan Assessment & Plan (1) Annual physical exam: Code(s): Z00.00 - Encounter for general adult medical examination without abnormal findings Plan: Well-balanced diet and regular physical activity discussed with the patient. (2) Hyperlipemia: Code(s): E78.5 - Hyperlipidemia, unspecified Plan: Continue statin (3) HTN (hypertension): Code(s): I10 - Essential (primary) hypertension Plan: Continue current medications (4) Diabetes: Onset Date: ~03/17/21 Comment: Type 2 Code(s): E11.9 - Type 2 diabetes mellitus without complications Plan: A1c is 6.8, continue ADA diet increase physical activity weight loss discussed with the patient continue the same medications and return in 4 months with a fasting labs before Orders: Orders Comprehensive [place]. Panel Fast 4 Months E11.9 - Type 2 diabetes mellitus without complications, E78.5 - Hyperlipidemia, unspecified, I10 - Essential (primary) hypertension Hemoglobin A1c 4 Months E11.9 - Type 2 diabetes mellitus without complications, E78.5 - Hyperlipidemia, unspecified, I10 - Essential (primary) hypertension TSH reflex Free T4 4 Months E11.9 - Type 2 diabetes mellitus without complications, E78.5 - Hyperlipidemia, unspecified, I10 - Essential (primary) hypertension Urine Culture 4 Months E11.9 - Type 2 diabetes mellitus without complications, E78.5 - Hyperlipidemia, unspecified, I10 - Essential (primary) hypertension Lipid Panel 4 Months E11.9 - Type 2 diabetes mellitus without complications, E78.5 - Hyperlipidemia, unspecified, I10 - Essential (primary) hypertension Microalbumin, Random (w Creat) 4 Months E11.9 - Type 2 diabetes mellitus without complications, E78.5 - Hyperlipidemia, unspecified, I10 - Essential (primary) hypertension Medications: New fluconazole 150 mg PO Q3D 2 tabs 0RF Changed From estradiol 0.01%(0.1mg/gram) (Estrace) 1 g vaginal 3XW 42.5 grams 3RF To estradiol 0.01%(0.1mg/gram) (Estrace) 1 g vaginal 2XW 42.5 grams 3RF Coding Level of Care Code Est Pt Prev Care >65y(00856) Diagnoses Annual physical exam Z00.00 Hyperlipemia E78.5 HTN (hypertension) I10 Diabetes E11.9
[2023-01-20 12:48] VITALS: BP 122/74; PULSE 62; O2SAT 95; BMI 26.4
== END 2023-01-20 14:16 | disposition home or self-care (01) ==
PROVIDERS: Visit Provider Internal Medicine
DX: Z00.00 Encounter for general adult medical examination without abnormal findings (principal); E78.5 Hyperlipidemia, unspecified; I10 Essential (primary) hypertension; E11.9 Type 2 diabetes mellitus without complications
CPT/HCPCS: 99397

== ENCOUNTER 2023-05-21 08:05 | Outpatient (REF) | payer OTHER, SELFPAY ==
[2023-05-21 12:11] LABS: Estimated Average Glucose 148 mg/dL; Hemoglobin A1c % 6.8 % (<6.0)
[2023-05-21 12:17] LABS: Alanine Aminotransferase 15 U/L (0-31); Albumin Level 4.3 g/dL (3.5-5.0); Alkaline Phosphatase 51 U/L (39-117); Anion Gap 16 (12-20); Aspartate Amino Transferase 15 U/L (5-31); Bilirubin Total 0.6 mg/dL (0.0-1.0); Blood Urea Nitrogen 18 mg/dL (9-16); Carbon Dioxide 26 mmol/L (22-29); Chloride 103 mmol/L (96-108); Cholesterol 138 mg/dL (<200); Estimated Glomerular Filt Rate 57; Glucose Fasting 150 mg/dL (60-99); HDL Cholesterol 42 mg/dL (>40); LDL Cholesterol Calculated 66 mg/dL (<100); Potassium 4.7 mmol/L (3.3-5.1); Sodium 140 mmol/L (135-145); Total Protein 7.7 g/dL (6.5-8.0); Triglycerides 153 mg/dL (<150)
[2023-05-21 12:42] LABS: TSH reflex Free T4 4.58 uIU/mL (0.32-4.0)
[2023-05-21 12:45] LABS: Creatinine Urine 81.15 mg/dL; Microalbum/Creatinine Ratio Ur 9.8 ug/mg cr (<30)
[2023-05-21 13:16] LABS: Free T4 (Free Thyroxine) 1.01 ng/dL (0.71-1.85)
== END 2023-05-21 08:06 | disposition home or self-care (01) ==
LOC: HO.HMGCLDS 08:05
PROVIDERS: PCP Internal Medicine; Visit Provider Internal Medicine
DX: E78.5 Hyperlipidemia, unspecified (principal); I10 Essential (primary) hypertension; E11.9 Type 2 diabetes mellitus without complications
CPT/HCPCS: 36415; 80053; 80061; 82043; 82570; 83036; 84439; 84443; 87086; 87147

== ENCOUNTER 2023-05-25 10:39 | Outpatient (AMB) | payer OTHER, SELFPAY ==
[2023-05-25 10:41] VITALS: BP 124/78; PULSE 72; O2SAT 95; BMI 26.6
--- NOTE | 2023-05-25 10:41 | MHC.PC.OV ---
Vital Signs 05/25/23 10:41 Height 5 ft 3 in Weight 150 lb BMI 26.6 BP 124/78 Blood Pressure Location Lt brachial Position Sitting Pulse 72 Pulse Source Pulse Oximeter Pulse Oximetry (%) 95 Oxygen Delivery Method Room Air Intake Visit Reasons: 4 month fu Intake Note: Pt is here today for 4 months follow up visit. Allergies lisinopril Allergy (Unknown, Verified 05/25/23 10:47) Cough Medication List - Last Reconciled 05/25/23 by Marysol Jefferson MD amlodipine-olmesartan 5-20 mg 1 tab PO DAILY atorvastatin 40 mg PO DAILY blood sugar diagnostic (FreeStyle Lite Strips) 1 strip miscellaneous DAILY blood-glucose meter (FreeStyle Lite Meter kit) use device to test blood sugar twice daily dimethicone 1.5% (Remedy Skin Repair) 1 appl topically with each episode of incontinence care; empagliflozin-linagliptin 25-5 mg (Glyxambi) 1 tab PO DAILY estradiol 0.01%(0.1mg/gram) (Estrace) 1 g vaginal 2XW famotidine (Pepcid) 20 mg PO DAILY fluconazole 150 mg PO Q3D 2 doses hydrochlorothiazide 25 mg PO DAILY incontinence pad, liner, disp As directed lancets (FreeStyle Lancets) use 1 needle to test blood sugar twice daily metformin ER 1,500 mg (2 x 750 mg) PO DAILY metoprolol tartrate 50 mg PO DAILY mirabegron ER (Myrbetriq) 25 mg PO DAILY miscellaneous medical supply 1 ea miscellaneous .QD valacyclovir (Valtrex) 2,000 mg (2 x 1 gram) PO Q12H Tobacco use date assessed: 05/25/23 Fall risk assessment: No Falls in past year Last assessed Fall Risk: 05/25/23 Dental Screening Dental Screen Date: 05/25/23 Did you have a dental visit in the last 12 months?: Yes Did you have a dental problem in the last 6 months where you did not have access to dental care?: No Was dental information given to patient?: Patient has dentist HPI 4 month fu HPI Details Pt presents for follow-up of type 2 diabetes hypertension hyperlipidemia. Patient complains of vaginal irritation and whitish discharge for 3 days. [facility] Medical History Annual physical exam Hyperlipemia Diabetes (~03/17/21) HTN (hypertension) Surgical History Status post ablation of incompetent vein using laser H/O colonoscopy Status post total shoulder arthroplasty Family History Father No problems noted. Mother No problems noted. Son No problems noted. Daughter No problems noted. Social History Housing: House Patient Tobacco Use Status: Never used Tobacco e-Cigarette/Vaping Use: Never Used Current occupational status: retired Cognitive needs: No Hearing needs: No Vision needs: No Questionnaire PHQ-9 Over the last 2 weeks, how often have you been bothered by any of the following problems? 1. Little interest or pleasure in doing things: not at all 2. Feeling down, depressed, or hopeless: not at all 3. Trouble falling or staying asleep, or sleeping too much: not at all 4. Feeling tired or having little energy: not at all 5. Poor appetite or overeating: not at all 6. Feeling bad about yourself - or that you are a failure or have let yourself or your family down: not at all 7. Trouble concentrating on things, such as reading the newspaper or watching television: not at all 8. Moving or speaking so slowly that other people could have noticed. Or the opposite - being so fidgety or restless that you have been moving around a lot more than usual: not at all 9. Thoughts that you would be better off or of hurting yourself in some way: not at all Total score: 0 Depression Screening Interpretation: Negative Depression Screening Done: Yes Source: Developed by Drs. Chico Colby, Winifred Lloyd, Eldon Berg and colleagues, with an educational sandra from [employer]. Thrive Questionnaire Date Thrive assessed: 05/25/23 I am a: Patient What is your living situation today?: I have a steady place to live Within the past 12 months, did the food you bought not last and you didn't have the money to get more?: Never true Within the past 12 months, did you worry whether your food would run out before you got money to buy more?: Never true Do you have trouble paying for medicines?: No Do you have trouble getting transportation to medical appointments?: No Do you have trouble paying your heating and electricity bill?: No Do you have trouble taking care of your child, family member or friend?: No Do you have trouble with day-to-day activities such as bathing, preparing meals, shopping, managing finances, etc.?: No Are you currently unemployed and looking for a job?: No Are you interested in more education?: No Please select the resources that you would like help with: None AUDIT C Alcohol Use Questionnaire (AUDIT-C) 1. How often do you have a drink containing alcohol?: Monthly or less 2. How many drinks containing alcohol do you have on a typical day when you are drinking?: 1 or 2 3. How often do you have six or more drinks on one occasion?: Never Total Score: 1 LALITA-7 AMB Questionnaire LALITA-7 Date LALITA - 7 assessed: 05/25/23 Feeling nervous, anxious, or on edge: 0 = Not at all Not being able to stop or control worryin = Not at all Worrying too much about different things: 0 = Not at all Trouble relaxin = Not at all Being so restless that it is hard to sit still: 0 = Not at all Becoming easily annoyed or irritable: 0 = Not at all Feeling afraid as if something awful might happen: 0 = Not at all Total LALITA-7 score (0-4 normal; 5-9 mild; 10-14 moderate; 15-21 severe): 0 Source: Developed by Drs. Chico Colby, Winifred Lloyd, Eldon Berg and colleagues, with an educational sandra from [employer]. Review of Systems Const All systems reviewed & are unremarkable except as noted in HPI and below Reports no additional complaints Eyes Reports no additional complaints ENT Reports no additional complaints Card Reports no additional complaints Resp Reports no additional complaints GI Reports no additional complaints Reports no additional complaints Physical exam (Primary Care) Vital Signs: Last Vital Signs Pulse 72 05/25/23 10:41 BP 124/78 05/25/23 10:41 Pulse Ox 95 05/25/23 10:41 Oxygen Delivery Method Room Air 05/25/23 10:41 BMI result Body Mass Index 26.6 Tobacco/Smoking Status: Tobacco use Status Tobacco use date assessed 05/25/23 05/25/23 10:48 Patient Tobacco Use Status Never used Tobacco 05/25/23 10:48 e-Cigarette/Vaping Use Never Used 05/25/23 10:46 PHQ-9: PHQ-9 Score PHQ-9: Total score 0 05/25/23 10:50 Depression Screening Interpretation: Negative Thrive Assessment: Date of Thrive Assessment Date Thrive assessed 05/25/23 05/25/23 10:50 Const General: no acute distress HENMT Head: Yes normal to inspection Face and sinus: Yes normal facial exam Eyes General: appearance normal, both eyes and all related structures Neck Neck: Yes no lymphadenopathy and Yes supple Resp Effort & Inspection: normal respiratory effort Auscultation: clear to auscultation bilaterally Cardio Rhythm: regular rhythm Heart sounds: S1 normal heart sound present and S2 normal heart sound present GI Inspection: Yes normal to inspection Palpation (GI): Soft to palpation Percussion: Yes normal to percussion Auscultation: normal bowel sounds Assessment and Plan Assessment & Plan (1) Hyperlipemia: Code(s): E78.5 - Hyperlipidemia, unspecified Plan: Continue statin (2) HTN (hypertension): Code(s): I10 - Essential (primary) hypertension Plan: Continue current medications (3) Diabetes: Onset Date: ~03/17/21 Comment: Type 2 Code(s): E11.9 - Type 2 diabetes mellitus without complications Plan: A1c is 6.8, ADA diet, exercise, weight loss, cont meds. f/u 4 months Orders: Orders Complete Blood Count Auto Diff 4 Months E11.9 - Type 2 diabetes mellitus without complications, E78.5 - Hyperlipidemia, unspecified, I10 - Essential (primary) hypertension Hemoglobin A1c 4 Months E11.9 - Type 2 diabetes mellitus without complications, E78.5 - Hyperlipidemia, unspecified, I10 - Essential (primary) hypertension Comprehensive [place]. Panel Fast 4 Months E11.9 - Type 2 diabetes mellitus without complications, E78.5 - Hyperlipidemia, unspecified, I10 - Essential (primary) hypertension Lipid Panel 4 Months E11.9 - Type 2 diabetes mellitus without complications, E78.5 - Hyperlipidemia, unspecified, I10 - Essential (primary) hypertension Microalbumin, Random (w Creat) 4 Months E11.9 - Type 2 diabetes mellitus without complications, E78.5 - Hyperlipidemia, unspecified, I10 - Essential (primary) hypertension Medications: New fluconazole 150 mg PO Q3D 4 tabs 1RF Refilled famotidine (Pepcid) 20 mg PO DAILY 90 tabs 2RF Coding Level of Care Code Est Pt Level 4 (53793) Diagnoses Hyperlipemia E78.5 HTN (hypertension) I10 Diabetes E11.9
== END 2023-05-25 11:36 | disposition home or self-care (01) ==
PROVIDERS: PCP Internal Medicine; Visit Provider Internal Medicine
DX: E78.5 Hyperlipidemia, unspecified (principal); I10 Essential (primary) hypertension; E11.9 Type 2 diabetes mellitus without complications
CPT/HCPCS: 99214

== ENCOUNTER 2023-09-17 09:42 | Outpatient (REF) | payer OTHER, SELFPAY ==
[2023-09-17 13:01] LABS: MANUAL DIFF FLAG NO
[2023-09-17 13:21] LABS: Estimated Average Glucose 163 mg/dL; Hemoglobin A1c % 7.3 % (<6.0)
[2023-09-17 13:24] LABS: Basophils Absolute Auto 0.1 X10*3/uL (0.0-0.2); Basophils Percent Auto 0.7 % (0-2); Eosinophils Absolute Auto 0.3 X10*3/uL (0.0-0.4); Eosinophils Percent Auto 3.7 % (0-4); Hematocrit 43.4 % (37.0-47.0); Hemoglobin 14.3 g/dl (12.0-16.0); Imm Gran Abs Auto 0.02 X10*3/uL (0.00-0.03); Imm Gran Pct Auto 0.3 % (0.0-0.4); Lymphocytes Absolute Auto 2.4 X10*3/uL (1.2-4.9); Lymphocytes Percent Auto 33.7 % (20-40); Mean Corpuscular HGB Conc 32.9 g/dl (31.0-35.0); Mean Corpuscular Hemoglobin 29.6 pg (27.0-33.0); Mean Corpuscular Volume 89.9 fL (80.0-98.0); Mean Platelet Volume 10.8 fL (9.4-12.3); Monocytes Absolute Auto 0.5 X10*3/uL (0.1-1.2); Monocytes Percent Auto 6.2 % (2-11); Neutrophils Percent Auto 55.4 % (45-73); Platelet Count 234 X10*3/uL (160-400); Red Blood Count 4.83 X10*6/uL (4.20-5.50); Red Cell Distribution Width 12.9 % (11.0-16.0); White Blood Count 7.2 X10*3/uL (4.8-10.8)
[2023-09-17 13:56] LABS: Creatinine Urine 45.86 mg/dL; Microalbumin Urine < 5.0 mg/L
[2023-09-17 14:06] LABS: Alanine Aminotransferase 16 U/L (0-31); Albumin Level 4.1 g/dL (3.5-5.0); Alkaline Phosphatase 47 U/L (39-117); Anion Gap 15 (12-20); Aspartate Amino Transferase 16 U/L (5-31); Bilirubin Total 0.5 mg/dL (0.0-1.0); Blood Urea Nitrogen 15 mg/dL (9-16); Calcium 9.8 mg/dL (8.4-10.2); Carbon Dioxide 24 mmol/L (22-29); Chloride 105 mmol/L (96-108); Cholesterol 146 mg/dL (<200); Estimated Glomerular Filt Rate 52; Glucose Fasting 168 mg/dL (60-99); HDL Cholesterol 38 mg/dL (>40); LDL Cholesterol Calculated 70 mg/dL (<100); Potassium 4.5 mmol/L (3.3-5.1); Sodium 139 mmol/L (135-145); Total Protein 7.3 g/dL (6.5-8.0); Triglycerides 191 mg/dL (<150)
== END 2023-09-17 09:43 | disposition home or self-care (01) ==
LOC: HO.HMGCLDS 09:42
PROVIDERS: PCP Internal Medicine; Visit Provider Internal Medicine
DX: E78.5 Hyperlipidemia, unspecified (principal); I10 Essential (primary) hypertension; E11.9 Type 2 diabetes mellitus without complications
CPT/HCPCS: 36415; 80053; 80061; 82570; 83036; 85025

== ENCOUNTER 2023-09-23 10:00 | Outpatient (AMB) | payer OTHER, SELFPAY ==
[2023-09-23 10:03] VITALS: BP 118/76; PULSE 61; O2SAT 98; BMI 26.4
--- NOTE | 2023-09-23 10:03 | A.OFFPC_ITS ---
Vital Signs 09/23/23 10:03 Height 5 ft 3 in Weight 149 lb BMI 26.4 BP 118/76 Blood Pressure Location Lt brachial Position Sitting Pulse 61 Pulse Source Pulse Oximeter Pulse Oximetry (%) 98 Oxygen Delivery Method Room Air Intake Visit Reasons: 4 Month follow up Intake Note: Pt is here today for 4 months follow up visit on DM and labs. Allergies lisinopril Allergy (Unknown, Verified 09/23/23 10:10) Cough Medication List - Last Reconciled 09/23/23 by Marysol Jefferson MD amlodipine-olmesartan 5-20 mg 1 tab PO DAILY atorvastatin 40 mg PO DAILY blood sugar diagnostic (FreeStyle Lite Strips) 1 strip miscellaneous DAILY blood-glucose meter (FreeStyle Lite Meter kit) use device to test blood sugar twice daily dimethicone 1.5% (Remedy Skin Repair) 1 appl topically with each episode of incontinence care; empagliflozin-linagliptin 25-5 mg (Glyxambi) 1 tab PO DAILY estradiol 0.01%(0.1mg/gram) (Estrace) 1 g vaginal 2XW famotidine (Pepcid) 20 mg PO DAILY fluconazole 150 mg PO Q3D 2 doses fluconazole 150 mg PO Q3D 2 doses hydrochlorothiazide 25 mg PO DAILY incontinence pad, liner, disp As directed lancets (FreeStyle Lancets) use 1 needle to test blood sugar twice daily metformin ER 1,500 mg (2 x 750 mg) PO DAILY metoprolol tartrate 50 mg PO DAILY mirabegron ER (Myrbetriq) 25 mg PO DAILY miscellaneous medical supply 1 ea miscellaneous .QD valacyclovir (Valtrex) 2,000 mg (2 x 1 gram) PO Q12H Tobacco use date assessed: 09/23/23 Dental Screening Dental Screen Date: 05/25/23 HPI 4 Month follow up HPI Details Pt presents for f/u HTN, hyperlipid, DM 2. Pt was getting cortisone inj for chronic LBP and her fasting blood glucose was elevated to over 300s for 2 weeks. Patient denies polyuria polydipsia and reports blood glucose readings down to 150s last week. [facility] Medical History Annual physical exam Hyperlipemia Diabetes (~03/17/21) HTN (hypertension) Surgical History Status post ablation of incompetent vein using laser H/O colonoscopy Status post total shoulder arthroplasty Family History Father No problems noted. Mother No problems noted. Son No problems noted. Daughter No problems noted. Social History Housing: House Patient Tobacco Use Status: Never used Tobacco e-Cigarette/Vaping Use: Never Used service: No Current occupational status: retired Cognitive needs: No Hearing needs: No Vision needs: No Questionnaire Thrive Questionnaire Date Thrive assessed: 05/25/23 LALITA-7 AMB Questionnaire LALITA-7 Date LALITA - 7 assessed: 05/25/23 Source: Developed by Drs. Chico Colby, Winifred Lloyd, Eldon Berg and colleagues, with an educational sandra from [employer]. Review of Systems Const All systems reviewed & are unremarkable except as noted in HPI and below Reports no additional complaints Eyes Reports no additional complaints ENT Reports no additional complaints Card Reports no additional complaints Resp Reports no additional complaints GI Reports no additional complaints Reports no additional complaints Physical exam (Primary Care) Vital Signs: Last Vital Signs Pulse 61 09/23/23 10:03 BP 118/76 09/23/23 10:03 Pulse Ox 98 09/23/23 10:03 Oxygen Delivery Method Room Air 09/23/23 10:03 BMI result Body Mass Index 26.4 Tobacco/Smoking Status: Tobacco use Status Tobacco use date assessed 09/23/23 09/23/23 10:11 Patient Tobacco Use Status Never used Tobacco 09/23/23 10:11 e-Cigarette/Vaping Use Never Used 09/23/23 10:04 Thrive Assessment: Date of Thrive Assessment Date Thrive assessed 05/25/23 09/23/23 10:04 Const General: no acute distress HENMT Head: Yes normal to inspection Ears: hearing grossly normal bilaterally Eyes General: appearance normal, both eyes and all related structures Resp Effort & Inspection: normal respiratory effort Auscultation: clear to auscultation bilaterally Cardio Rhythm: regular rhythm Heart sounds: S1 normal heart sound present and S2 normal heart sound present GI Inspection: Yes normal to inspection Palpation (GI): Soft to palpation Percussion: Yes normal to percussion Assessment and Plan Assessment & Plan (1) Diabetes: Onset Date: ~03/17/21 Comment: Type 2 Code(s): E11.9 - Type 2 diabetes mellitus without complications Plan: A1c is 7.3, ADA diet increase exercise discussed with the patient continue same medications , patient will try to take 3 tablets of metformin a day, follow-up in 4 months (2) HTN (hypertension): Code(s): I10 - Essential (primary) hypertension Plan: Continue current medications (3) Hyperlipemia: Code(s): E78.5 - Hyperlipidemia, unspecified Plan: Continue statin (4) Chronic lower back pain: Comment: Tried cortisone injections by [facility] Code(s): M54.50 - Low back pain, unspecified; G89.29 - Other chronic pain Plan: Follow-up with pain management, regular lower back exercises and increasing physical activity discussed with the patient Orders: Orders Lipid Panel 4 Months E11.9 - Type 2 diabetes mellitus without complications, E78.5 - Hyperlipidemia, unspecified, G89.29 - Other chronic pain, I10 - Essential (primary) hypertension, M54.50 - Low back pain, unspecified Hemoglobin A1c 4 Months E11.9 - Type 2 diabetes mellitus without complications, E78.5 - Hyperlipidemia, unspecified, G89.29 - Other chronic pain, I10 - Essential (primary) hypertension, M54.50 - Low back pain, unspecified Comprehensive Met. Panel 4 Months E11.9 - Type 2 diabetes mellitus without complications, E78.5 - Hyperlipidemia, unspecified, G89.29 - Other chronic pain, I10 - Essential (primary) hypertension, M54.50 - Low back pain, unspecified Microalbumin, Random (w Creat) 4 Months E11.9 - Type 2 diabetes mellitus without complications, E78.5 - Hyperlipidemia, unspecified, G89.29 - Other chronic pain, I10 - Essential (primary) hypertension, M54.50 - Low back pain, unspecified Medications: New diabetic supplies, miscellan. diabetic shoes 1 ea 0RF E11.40 - Type 2 diabetes mellitus with diabetic neuropathy, unspecified, E11.9 - Type 2 diabetes mellitus without complications Refilled blood sugar diagnostic (FreeStyle Lite Strips) 1 strip miscellaneous DAILY 100 ea 3RF for diabetes mellitus E11.9 - Type 2 diabetes mellitus without complications Coding Level of Care Code Est Pt Level 4 (54670) Diagnoses Diabetes E11.9 HTN (hypertension) I10 Hyperlipemia E78.5 Chronic lower back pain M54.50; G89.29
== END 2023-09-23 10:51 | disposition home or self-care (01) ==
PROVIDERS: PCP Internal Medicine; Visit Provider Internal Medicine
DX: E11.9 Type 2 diabetes mellitus without complications (principal); I10 Essential (primary) hypertension; E78.5 Hyperlipidemia, unspecified; M54.50 Low back pain, unspecified; G89.29 Other chronic pain
CPT/HCPCS: 99214

== ENCOUNTER 2023-11-26 08:57 | Outpatient (REF) | payer OTHER, SELFPAY ==
--- NOTE | ~2023-11-26 | XR_ITS ---
EXAMINATION: XR LUMBOSACRAL SPINE CLINICAL INFORMATION: Spondylolisthesis, lumbar region. COMPARISON: None. TECHNIQUE: AP and lateral views of the lumbar spine were obtained. Lateral views were obtained in flexion, extension, and neutral positions. FINDINGS: Grade 2 anterolisthesis of L4 on L5 measures 1 cm in neutral position and flexion and reduces to 7 mm with extension, consistent with abnormal motion. There is minimal range of motion seen between flexion and extension. [id number] degenerative disc disease is present at L4-L5 with loss of intervertebral disc height, endplate osteophytes, and endplate irregularity. There is severe loss of vertebral disc height at L5-S1 with possible degenerative ankylosis at this level. 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 Minimal degenerative disc disease at L2-L3 and L3-L4. Vertebral body heights are normal. No fractures. Atherosclerotic calcifications are present in the abdominal aorta and iliac arteries. XR/XR lumbar spine 4V min IMPRESSION: 1. Grade 2 anterolisthesis of L4 on L5 with abnormal motion between flexion and extension. 2. [id number] degenerative disc disease at L4-L5 and L5-S1. 3. 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
== END 2023-11-26 08:58 | disposition home or self-care (01) ==
LOC: HO.HOSX 08:57
PROVIDERS: PCP Internal Medicine; Visit Provider Neurological Surgery
DX: M43.16 Spondylolisthesis, lumbar region (principal); M48.062 Spinal stenosis, lumbar region with neurogenic claudication
CPT/HCPCS: 72110; 99202

== ENCOUNTER 2023-11-26 08:57 | Outpatient (AMB) | payer OTHER, SELFPAY ==
--- NOTE | 2023-11-26 09:19 | A.SPINEOV_ITS ---
Intake Visit Reasons: lumbar radiculopathy Intake Note: Ms. Ag is here today c/o low back pain. 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 HPI: This 73-year-old female developed severe pain down her right leg with walking and standing approximately 1 year ago. Sitting alleviates his symptoms. The pain radiates from the back to the hip down to her outside of the ankle. The left side is unaffected. She denies numbness or weakness. The symptoms are interfering with her daily activities. She likes to cook and she constantly had to sit down to complete the tasks. The right leg pain is also associated with back pain across the lumbar spine. The pain gets worse when she changes positions and the pain wakes her up at night. She tried 3 epidural steroid injections without significant effect. She also complete a course of physical therapy. The following conservative treatment options were tried without success an tiinflammatories, tylenol, physical therapy, cortisone shots PMH: -, cholecystectomy, varicose veins removal Medications: Amlodipine,, atorvastatin, famotidine, hydrochlorothiazide, metformin 1500 mg, metoprolol, Glyxambi Allergies: Lisinopril Social history: Nonsmoker. 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 Asymptomatic when she sits down. Standing for short period of time produces pain radiating down her right leg. No motor or sensory deficits. Radiological Studies: MRI done at [place] on 07/22/2022 shows a grade 1 L4-5 spondylolisthesis and T2 hyperintensity of the L4-5 facet joints with associated moderate to severe central stenosis. In addition there is lumbar degenerative disc disease L5-S1. Dynamic lumbar x-rays obtained today show L4-5 instability with an increase of the spondylolisthesis with extension. Impression/Plan: This 73-year-old female suffering from unilateral neurogenic claudication with back pain caused by unstable L4-5 lumbar spondylolisthesis and associated central spine stenosis. I recommended a minimally invasive correction of the spondylolisthesis to indirectly decompress her nerve roots to address the back pain and right leg pain. I do not think that a simple decompression is beneficial in this patient due to the instability. I described the procedure, oblique lumbar interbody fusion. She will be in hospital 1 day. We also discussed the expected postoperative course. She she will need to hold Glyxambi 3 days prior to surgery. She is going to think about this option and will let my office know if she wants to proceed. Thank you for allowing me to participate in your patients care. total time spent was 50 minutes in counseling ,coordination of plan, personal review of imaging, surgical decision making and subsequent plan Bert Abdi MD, PhD Spine Fellowship Trained Neurosurgeon Director, [facility] (2) Lumbar stenosis with neurogenic claudication: Code(s): M48.062 - Spinal stenosis, lumbar region with neurogenic claudication Category: Medical Plan: s Orders: Orders XR lumbar spine 4V min Today M43.16 - Spondylolisthesis, lumbar region, M48.062 - Spinal stenosis, lumbar region with neurogenic claudication Coding Level of Care Code New Pt Level 4 (88789) Diagnoses Spondylolisthesis of lumbar region M43.16 Lumbar stenosis with neurogenic claudication M48.062
== END 2023-11-26 10:28 | disposition home or self-care (01) ==
PROVIDERS: PCP Internal Medicine; Referring Provider Student in an Organized Health Care Education/Training Program; Visit Provider Neurological Surgery
DX: M43.16 Spondylolisthesis, lumbar region (principal); M48.062 Spinal stenosis, lumbar region with neurogenic claudication
CPT/HCPCS: 99204

== ENCOUNTER 2024-01-07 07:43 | Outpatient (REF) | payer OTHER, SELFPAY ==
[2024-01-07 10:43] LABS: Alanine Aminotransferase 21 U/L (0-31); Albumin Level 4.2 g/dL (3.5-5.0); Alkaline Phosphatase 57 U/L (39-117); Anion Gap 11 (12-20); Aspartate Amino Transferase 17 U/L (5-31); Bilirubin Total 0.4 mg/dL (0.0-1.0); Blood Urea Nitrogen 17 mg/dL (9-16); Calcium 9.6 mg/dL (8.4-10.2); Carbon Dioxide 27 mmol/L (22-29); Chloride 103 mmol/L (96-108); Cholesterol 136 mg/dL (<200); Estimated Glomerular Filt Rate 53; Glucose Random 142 mg/dL (60-115); HDL Cholesterol 36 mg/dL (>40); LDL Cholesterol Calculated 57 mg/dL (<100); Potassium 4.4 mmol/L (3.3-5.1); Sodium 137 mmol/L (135-145); Total Protein 7.2 g/dL (6.5-8.0); Triglycerides 216 mg/dL (<150)
[2024-01-07 10:48] LABS: Creatinine Urine 56.02 mg/dL; Microalbumin Urine < 5.0 mg/L
[2024-01-07 12:31] LABS: Estimated Average Glucose 157 mg/dL; Hemoglobin A1c % 7.1 % (<6.0)
== END 2024-01-07 07:44 | disposition home or self-care (01) ==
LOC: HO.HMGCLDS 07:43
PROVIDERS: PCP Internal Medicine; Visit Provider Internal Medicine
DX: E11.9 Type 2 diabetes mellitus without complications (principal); I10 Essential (primary) hypertension; E78.5 Hyperlipidemia, unspecified; M54.50 Low back pain, unspecified; G89.29 Other chronic pain
CPT/HCPCS: 36415; 80053; 80061; 82043; 82570; 83036

== ENCOUNTER 2024-01-26 10:04 | Outpatient (REF) | payer OTHER, SELFPAY ==
--- NOTE | ~2024-01-26 | MM_ITS ---
EXAMINATION: MM SCREENING DIGITAL BREAST TOMOSYNTHESIS, BILATERAL CLINICAL INFORMATION: Screening. Asymptomatic. COMPARISON: Mammography: Comparison is made with available priors TECHNIQUE: Digital breast mammography with tomosynthesis is performed in both the craniocaudal and mediolateral oblique views along with computer-aided detection (CAD). FINDINGS: There are scattered areas of fibroglandular density (ACR BI-RADS breast composition Category b). There are no significant masses, abnormal calcifications, or other abnormalities. MM/MM tomosynthesis screening BI IMPRESSION: No mammographic evidence of malignancy. ASSESSMENT: BI-RADS BI-RADS 1 - Negative RECOMMENDATION: Routine annual mammography screening. 1 year F/U This examination should not preclude the clinical evaluation of a suspicious palpable abnormality. This patient's information was entered into a reminder system with a target due date for their next mammogram. Electronically signed by: Vanessa Serrano DO 02/08/2024 04:21 PM EDT
== END 2024-01-26 10:05 | disposition home or self-care (01) ==
LOC: HO.MAMMO 10:04
PROVIDERS: PCP Internal Medicine; Visit Provider Internal Medicine
DX: Z12.31 Encounter for screening mammogram for malignant neoplasm of breast (principal)
CPT/HCPCS: 77063; 77067

== ENCOUNTER → 2024-01-26 10:30 | Outpatient (BNV) | payer OTHER, SELFPAY | PROVIDERS: PCP Internal Medicine; Visit Provider Internal Medicine | DX: Z12.31 Encounter for screening mammogram for malignant neoplasm of breast (principal) | CPT/HCPCS: 77063; 77067 ==

== ENCOUNTER 2024-01-31 11:15 | Outpatient (AMB) | payer OTHER, SELFPAY ==
--- NOTE | 2024-01-31 11:21 | MHC.PC.OV ---
Vital Signs 01/31/24 11:22 Height 5 ft 3 in Weight 146 lb BMI 25.9 BP 110/68 Blood Pressure Location Lt brachial Position Sitting Pulse 66 Pulse Source Pulse Oximeter Pulse Oximetry (%) 98 Oxygen Delivery Method Room Air Intake Visit Reasons: PE Intake Note: Pt is here today for PE. Allergies lisinopril Allergy (Unknown, Verified 01/31/24 11:22) Cough Medication List - Last Reconciled 01/31/24 by Marysol Jefferson MD amlodipine-olmesartan 5-20 mg 1 tab PO DAILY atorvastatin 40 mg PO DAILY blood sugar diagnostic (FreeStyle Lite Strips) 1 strip miscellaneous DAILY blood-glucose meter (FreeStyle Lite Meter kit) use device to test blood sugar twice daily diabetic supplies, miscellan. diabetic shoes dimethicone 1.5% (Remedy Skin Repair) 1 appl topically with each episode of incontinence care; empagliflozin-linagliptin 25-5 mg (Glyxambi) 1 tab PO DAILY estradiol 0.01%(0.1mg/gram) (Estrace) 1 g vaginal 2XW famotidine (Pepcid) 20 mg PO DAILY fluconazole 150 mg PO Q3D 2 doses fluconazole 150 mg PO Q3D 2 doses hydrochlorothiazide 25 mg PO DAILY incontinence pad, liner, disp As directed lancets (FreeStyle Lancets) use 1 needle to test blood sugar twice daily metformin ER 1,500 mg (2 x 750 mg) PO DAILY metoprolol tartrate 50 mg PO DAILY mirabegron ER (Myrbetriq) 25 mg PO DAILY miscellaneous medical supply 1 ea miscellaneous .QD valacyclovir (Valtrex) 2,000 mg (2 x 1 gram) PO Q12H Tobacco use date assessed: 01/31/24 Fall risk assessment: No Falls in past year Last assessed Fall Risk: 01/31/24 Dental Screening Dental Screen Date: 05/25/23 HPI PE HPI Details Patient presents for physical. She complains of persistent chronic right buttock pain radiating to right lower extremity worse when sitting for long time or walking. Patient denies pain at night, weakness or numbness in extremities change in bowel or bladder function. She had 3 cortisone injections to lumbar spine at [facility] without relief. [facility] Medical History (Updated 01/31/24 @ 12:57 by Marysol Jefferson MD) Annual physical exam Hyperlipemia Diabetes (~03/17/21) HTN (hypertension) Surgical History Status post ablation of incompetent vein using laser H/O colonoscopy Status post total shoulder arthroplasty Family History Father No problems noted. Mother No problems noted. Son No problems noted. Daughter No problems noted. Social History Housing: House Patient Tobacco Use Status: Never used Tobacco e-Cigarette/Vaping Use: Never Used service: No Current occupational status: retired Cognitive needs: No Hearing needs: No Vision needs: No Questionnaire PHQ-9 Over the last 2 weeks, how often have you been bothered by any of the following problems? 1. Little interest or pleasure in doing things: not at all 2. Feeling down, depressed, or hopeless: not at all 3. Trouble falling or staying asleep, or sleeping too much: more than half the days 4. Feeling tired or having little energy: several days 5. Poor appetite or overeating: several days 6. Feeling bad about yourself - or that you are a failure or have let yourself or your family down: not at all 7. Trouble concentrating on things, such as reading the newspaper or watching television: not at all 8. Moving or speaking so slowly that other people could have noticed. Or the opposite - being so fidgety or restless that you have been moving around a lot more than usual: several days 9. Thoughts that you would be better off or of hurting yourself in some way: not at all Total score: 5 Depression Screening Interpretation: Negative Depression Screening Done: Yes 22352 - PHQ-9 Billing: Yes Source: Developed by Drs. Chico Colby, Winifred Lloyd, Eldon Berg and colleagues, with an educational sandra from [employer]. Thrive Questionnaire Date Thrive assessed: 01/31/24 I am a: Patient What is your living situation today?: I have a steady place to live Within the past 12 months, did the food you bought not last and you didn't have the money to get more?: I choose not to answer this question Within the past 12 months, did you worry whether your food would run out before you got money to buy more?: I choose not to answer this question Do you have trouble paying for medicines?: I choose not to answer this question Do you have trouble getting transportation to medical appointments?: I choose not to answer this question Do you have trouble paying your heating and electricity bill?: I choose not to answer this question Do you have trouble taking care of your child, family member or friend?: I choose not to answer this question Do you have trouble with day-to-day activities such as bathing, preparing meals, shopping, managing finances, etc.?: I choose not to answer this question Are you currently unemployed and looking for a job?: I choose not to answer this question Are you interested in more education?: I choose not to answer this question Please select the resources that you would like help with: None Currently or been in a relationship where the following occur: No concerns reported THRIVE Score: 0 AUDIT C Alcohol Use Questionnaire (AUDIT-C) 1. How often do you have a drink containing alcohol?: Monthly or less 2. How many drinks containing alcohol do you have on a typical day when you are drinking?: 1 or 2 3. How often do you have six or more drinks on one occasion?: Never Total Score: 1 LALITA-7 AMB Questionnaire LALITA-7 Date LALITA - 7 assessed: 01/31/24 Feeling nervous, anxious, or on edge: 1 = Several days Not being able to stop or control worryin = Not at all Worrying too much about different things: 0 = Not at all Trouble relaxin = Not at all Being so restless that it is hard to sit still: 0 = Not at all Becoming easily annoyed or irritable: 0 = Not at all Feeling afraid as if something awful might happen: 0 = Not at all Total LALITA-7 score (0-4 normal; 5-9 mild; 10-14 moderate; 15-21 severe): 1 Source: Developed by Drs. Chico Colby, Winifred Lloyd, Eldon Berg and colleagues, with an educational sandra from [employer]. LALITA-7 Assessment Billing LALITA-7 Assessment Tool: LALITA-7 Assessment 73499 Review of Systems Const All systems reviewed & are unremarkable except as noted in HPI and below Eyes Reports no additional complaints ENT Reports no additional complaints Card Reports no additional complaints Resp Reports no additional complaints GI Reports no additional complaints Reports no additional complaints Physical exam (Primary Care) Vital Signs: Last Vital Signs Pulse 66 01/31/24 11:22 BP 110/68 01/31/24 11:22 Pulse Ox 98 01/31/24 11:22 Oxygen Delivery Method Room Air 01/31/24 11:22 BMI result Body Mass Index 25.9 Tobacco/Smoking Status: Tobacco use Status Tobacco use date assessed 01/31/24 01/31/24 11:26 Patient Tobacco Use Status Never used Tobacco 01/31/24 11:26 e-Cigarette/Vaping Use Never Used 01/31/24 11:26 PHQ-9: PHQ-9 Score PHQ-9: Total score 5 01/31/24 11:26 Depression Screening Interpretation: Negative Thrive Assessment: Date of Thrive Assessment Date Thrive assessed 01/31/24 01/31/24 11:26 Currently or been in a relationship where the following occur: No concerns reported Const General: no acute distress HENMT Head: Yes normal to inspection Ears: hearing grossly normal bilaterally General nose exam: Normal external nose present Mouth: Normal oral and palatal mucosa present Throat: Yes posterior oropharynx normal Eyes General: appearance normal, both eyes and all related structures Neck Neck: Yes no lymphadenopathy and Yes supple Resp Effort & Inspection: normal respiratory effort Auscultation: clear to auscultation bilaterally Cardio Rhythm: regular rhythm Heart sounds: S1 normal heart sound present and S2 normal heart sound present GI Inspection: Yes normal to inspection Palpation (GI): Soft to palpation Percussion: Yes normal to percussion Auscultation: normal bowel sounds Back/Spine/Pelvis Other: No spinal paraspinal tenderness in lumbar region, there is reproducible tenderness in the right buttock, straight leg rising 90 degrees bilaterally deep tendon reflexes 1+ bilaterally Assessment and Plan Assessment & Plan (1) Hyperlipemia: Code(s): E78.5 - Hyperlipidemia, unspecified Plan: Continue statin (2) Diabetes: Onset Date: ~03/17/21 Comment: Type 2 Code(s): E11.9 - Type 2 diabetes mellitus without complications Plan: A1c 7.1, ADA diet increase physical activity discussed with the patient. She declined adding GLP 1 agonist (3) HTN (hypertension): Code(s): I10 - Essential (primary) hypertension Plan: Continue current medications (4) Piriformis syndrome of right side: Code(s): G57.01 - Lesion of sciatic nerve, right lower limb Plan: Patient will try physical therapy and home exercises given to the patient. (5) Spondylolisthesis of lumbar region: Code(s): M43.16 - Spondylolisthesis, lumbar region Plan: Obtain MRI of lumbar spine to evaluate for disc herniation, nerve compression (6) Annual physical exam: Code(s): Z00.00 - Encounter for general adult medical examination without abnormal findings Plan: Patient is up-to-date with the mammogram due for colonoscopy next February, regular physical activity well-balanced diet discussed with the patient Orders: Orders MR lumbar spine wo con Today M48.062 - Spinal stenosis, lumbar region with neurogenic claudication Complete Blood Count Auto Diff 3 Months E11.9 - Type 2 diabetes mellitus without complications, E78.5 - Hyperlipidemia, unspecified, I10 - Essential (primary) hypertension Lipid Panel 3 Months E11.9 - Type 2 diabetes mellitus without complications, E78.5 - Hyperlipidemia, unspecified, I10 - Essential (primary) hypertension Hemoglobin A1c 3 Months E11.9 - Type 2 diabetes mellitus without complications, E78.5 - Hyperlipidemia, unspecified, I10 - Essential (primary) hypertension PT Evaluation and Treatment Today G57.01 - Lesion of sciatic nerve, right lower limb, M54.30 - Sciatica, unspecified side Comprehensive [place]. Panel Fast 3 Months E11.9 - Type 2 diabetes mellitus without complications, E78.5 - Hyperlipidemia, unspecified, I10 - Essential (primary) hypertension Microalbumin, Random (w Creat) 3 Months E11.9 - Type 2 diabetes mellitus without complications, E78.5 - Hyperlipidemia, unspecified, I10 - Essential (primary) hypertension Medications: Refilled fluconazole 150 mg PO Q3D 4 tabs 3RF estradiol 0.01%(0.1mg/gram) (Estrace) 1 g vaginal 2XW 42.5 grams 3RF Coding Level of Care Code Est Pt Prev Care >65y(01320) Diagnoses Hyperlipemia E78.5 Diabetes E11.9 HTN (hypertension) I10 Piriformis syndrome of right side G57.01 Spondylolisthesis of lumbar region M43.16 Annual physical exam Z00.00 Additional Codes LALITA-7 Assessment Billing - LALITA-7 Assessment Tool: LALITA-7 Assessment [id number] ([id number])
[2024-01-31 11:22] VITALS: BP 110/68; PULSE 66; O2SAT 98; BMI 25.9
== END 2024-01-31 12:58 | disposition home or self-care (01) ==
PROVIDERS: PCP Internal Medicine; Visit Provider Internal Medicine
DX: E78.5 Hyperlipidemia, unspecified (principal); E11.9 Type 2 diabetes mellitus without complications; I10 Essential (primary) hypertension; G57.01 Lesion of sciatic nerve, right lower limb; M43.16 Spondylolisthesis, lumbar region; Z00.00 Encounter for general adult medical examination without abnormal findings

== ENCOUNTER → 2024-01-31 11:15 | Outpatient (BNVA) | payer OTHER, SELFPAY | PROVIDERS: PCP Internal Medicine; Visit Provider Internal Medicine | DX: Z00.00 Encounter for general adult medical examination without abnormal findings (principal); E11.9 Type 2 diabetes mellitus without complications; I10 Essential (primary) hypertension; G47.01 Insomnia due to medical condition; M43.16 Spondylolisthesis, lumbar region | CPT/HCPCS: 96127 ==

== ENCOUNTER → 2024-03-01 07:46 | Outpatient (BNV) | payer OTHER, SELFPAY | PROVIDERS: PCP Internal Medicine; Visit Provider Radiology Diagnostic Radiology | DX: M48.062 Spinal stenosis, lumbar region with neurogenic claudication (principal) | CPT/HCPCS: 72148 ==

== ENCOUNTER 2024-03-01 08:04 | Outpatient (REF) | payer OTHER, SELFPAY ==
--- NOTE | ~2024-03-01 | MR_ITS ---
EXAMINATION: MR LUMBAR SPINE WITHOUT CONTRAST CLINICAL INFORMATION: Spinal stenosis, lumbar region with neurogenic claudication. COMPARISON: None available. Correlated to x-ray dated November 26, 2023. TECHNIQUE: MRI of the lumbar spine was obtained using routine sequences without contrast. FINDINGS: Submitted for interpretation on April 18, 2024. Last rib-bearing vertebra labeled T12. Grade 1 anterolisthesis L4-5 with bone marrow STIR signal abnormality involving the inferior endplate of L4 and superior endplate of L5 extending into the pedicles of L5. Decreased intervertebral disc height at L4-5. Schmorl nodes in the endplates of L4 and L5. Multilevel marginal osteophyte formation and disc desiccation. Bone marrow inhomogeneity. There is prominent epidural fat from L4 to the sacrum. 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 T11-12: No disc herniation. No neuroforamina stenosis. T12-L1: No disc herniation. No neuroforamina stenosis. L1-2: Broad-based disc bulging. Facet joint and ligamentum flavum hypertrophy. No compression upon neural elements. L2-3: Broad-based disc bulging. Facet joint and ligamentum flavum hypertrophy. No compression upon neural elements. L3-4: Broad-based disc bulging. Facet joint hypertrophy. Reduced AP diameter of the thecal sac and neuroforamina. No compression upon neural elements. L4-5: Grade 1 anterolisthesis. Facet joint and ligamentum flavum hypertrophy. CSF effacement of the thecal sac and central spinal canal stenosis encroaching the neural elements of the thecal sac and likely the exiting nerve roots of L4 on a multifactorial basis. Bilateral neuroforamina stenosis. L5-S1: Broad-based disc bulging. Facet joint hypertrophy. Bilateral neuroforamina stenosis encroaching the exiting nerve roots. No prevertebral compartment hematoma, mass or fluid collection. MR/MR lumbar spine wo con IMPRESSION: Multilevel spondylosis more conspicuous at L4-5 resulting in grade 1 anterolisthesis compressing the neural elements of the thecal sac and the exiting nerve roots. Instability cannot be excluded. Prominent epidural fat L4 to sacrum reducing the AP diameter of the thecal sac. Bone marrow contusions endplates of L4-5. Electronically signed by: Rubin Bliss MD 04/18/2024 12:20 PM EST
== END 2024-03-01 08:05 | disposition home or self-care (01) ==
LOC: HO.MRI 08:04
PROVIDERS: PCP Internal Medicine; Visit Provider Internal Medicine
DX: M48.062 Spinal stenosis, lumbar region with neurogenic claudication (principal)
CPT/HCPCS: 72148

== ENCOUNTER 2024-03-30 09:00 | Outpatient (RCR) | payer OTHER, SELFPAY ==
--- NOTE | 2024-03-10 09:43 | MHC.PT.EP ---
[facility] [place] Office [place] Office [place] Office [address] Shaquille Rajput [address] [phone] F: [phone] F: [phone] F: [phone] F: [phone] Physical Therapy Plan of Care Date of Evaluation: 03/10/24 Date of Surgery: n/a Diagnosis: sciatica, piriformis syndrome R side Assessment: Patient is a 73 year old female presenting to PT with complaints of pain in her low back. Pt reports onset of pain began about 18 months ago due to insidious onset. She presents today with impairments in pain, lumbar ROM, radicular sx, hip strength. Pt's current occupation is retired, with baseline physical activities including standing, ambulating, ADLs. Pt expresses fdc goal of reducing pain, and is motivated to work towards this in PT. Clinical presentation today is most consistent with signs and sx associated with low back pain and pt will benefit from skilled PT 2 week x 4 weeks to address the following problems and impairments noted upon evaluation: pain, lumbar ROM, radicular sx, hip strength. These problems limit the patient with the following functional activities: standing, ambulating, ADLs. The prescribed treatment plan of care is medically necessary. Co-morbidities of DM were identified and taken into considerations of plan of care. Pt was educated on HEP, role of PT, prognosis, POC. Frequency and Duration: The patient will be seen 2 x week x 4 weeks Short Term Goals: Pt will demonstrate centralization of sx in 2 weeks. Pt will demonstrate improved hip MMT strength by 1/3 grade in 2 weeks. Pt will demonstrate ability to move through available lumbar ROM with min to no pain in 2 weeks. Fpc Goals: Pt will demonstrate improved Lucy score by 10% in 4 weeks for improved functional mobility. Pt will demonstrate ability to ambulate with min to no pain in 4 weeks for return to PLOF. Pt will demonstrate ability to stand with min to no pain for improved ability to complete ADLs and cook. Treatment Plan: Modalities to reduce pain, spasms and effusion. Manual therapy to restore motion and function. Therapeutic exercise to improve strength and flexibility. Neuromuscular re-education for posture and balance. Therapeutic activities to return to functional activities of daily living. Electronically signed by: Bere Trimble, PT, DPT, ATC Please sign and return to therapist. Thank you for your referral.
--- NOTE | 2024-04-28 13:09 | MHC.PT.DC ---
[facility] [place] Office [place] Office [place] Office [address] Shaquille Rajput [address] [phone] F: [phone] F: [phone] F: [phone] F: [phone] Physical Therapy Discharge Report Diagnosis: sciatica, piriformis syndrome R side Date of Surgery: n/a Date of Evaluation: 03/10/24 Date of Discharge: 04/28/24 Treatments to Date: 4 Cancellations to Date: 1 No Shows to Date: 0 Discharge Status: Discharge Summary: Pt cancelled her last appointment and has not called to be scheduled in >30 days. Therefore pt to be d/c. Electronically signed by: Bere Trimble PT, DPT, ATC Please sign and return to therapist. Thank you for your referral.
== END 2024-04-28 13:09 | disposition home or self-care (01) ==
LOC: HO.PTCHIC 09:00
PROVIDERS: PCP Internal Medicine; Visit Provider Internal Medicine
DX: M54.30 Sciatica, unspecified side (principal)
CPT/HCPCS: 97110; 97140; 97161

== ENCOUNTER 2024-05-02 08:20 | Outpatient (REF) | payer OTHER, SELFPAY ==
[2024-05-02 09:59] LABS: MANUAL DIFF FLAG NO
[2024-05-02 10:07] LABS: Basophils Percent Auto 0.4 % (0-2); Eosinophils Absolute Auto 0.7 X10*3/uL (0.0-0.4); Eosinophils Percent Auto 9.1 % (0-4); Hemoglobin 13.8 g/dl (12.0-16.0); Imm Gran Abs Auto 0.02 X10*3/uL (0.00-0.03); Imm Gran Pct Auto 0.2 % (0.0-0.4); Lymphocytes Absolute Auto 2.1 X10*3/uL (1.2-4.9); Lymphocytes Percent Auto 26.1 % (20-40); Mean Corpuscular HGB Conc 32.9 g/dl (31.0-35.0); Mean Corpuscular Volume 88.2 fL (80.0-98.0); Mean Platelet Volume 10.7 fL (9.4-12.3); Monocytes Absolute Auto 0.5 X10*3/uL (0.1-1.2); Monocytes Percent Auto 5.7 % (2-11); Neutrophils Absolute Auto 4.7 x10*3/uL (2.0-8.3); Neutrophils Percent Auto 58.5 % (45-73); Platelet Count 239 X10*3/uL (160-400); Red Blood Count 4.76 X10*6/uL (4.20-5.50); Red Cell Distribution Width 13.3 % (11.0-16.0)
[2024-05-02 10:17] LABS: Estimated Average Glucose 171 mg/dL; Hemoglobin A1C 207.5441 umol/L; Hemoglobin A1c % 7.6 % (<6.0); Total Hemoglobin (HGBA1C) 3497.8686 umol/L
[2024-05-02 10:22] LABS: Alanine Aminotransferase 18 U/L (0-31); Albumin Level 4.1 g/dL (3.5-5.0); Alkaline Phosphatase 49 U/L (39-117); Anion Gap 13 (12-20); Aspartate Amino Transferase 18 U/L (5-31); Bilirubin Total 0.6 mg/dL (0.0-1.0); Blood Urea Nitrogen 16 mg/dL (9-16); Calcium 9.8 mg/dL (8.4-10.2); Carbon Dioxide 26 mmol/L (22-29); Chloride 104 mmol/L (96-108); Cholesterol 131 mg/dL (<200); Estimated Glomerular Filt Rate 47; Glucose Fasting 187 mg/dL (60-99); HDL Cholesterol 39 mg/dL (>40); LDL Cholesterol Calculated 63 mg/dL (<100); Potassium 4.1 mmol/L (3.3-5.1); Sodium 139 mmol/L (135-145); Total Protein 7.3 g/dL (6.5-8.0); Triglycerides 148 mg/dL (<150)
[2024-05-02 10:39] LABS: Creatinine Urine 67.76 mg/dL; Microalbumin Urine < 5.0 mg/L
== END 2024-05-02 08:21 | disposition home or self-care (01) ==
LOC: HO.HMGCLDS 08:20
PROVIDERS: PCP Internal Medicine; Visit Provider Internal Medicine
DX: E11.9 Type 2 diabetes mellitus without complications (principal); E78.5 Hyperlipidemia, unspecified; I10 Essential (primary) hypertension
CPT/HCPCS: 36415; 80053; 80061; 82570; 83036; 85025

== ENCOUNTER 2024-05-08 10:00 | Outpatient (AMB) | payer OTHER, SELFPAY ==
[2024-05-08 10:05] VITALS: BP 124/68; PULSE 67; O2SAT 97; BMI 25.7
--- NOTE | 2024-05-08 10:05 | A.OFFPC_ITS ---
Vital Signs 05/08/24 10:05 Height 5 ft 3 in Weight 145 lb BMI 25.7 BP 124/68 Blood Pressure Location Lt brachial Position Sitting Pulse 67 Pulse Source Pulse Oximeter Pulse Oximetry (%) 97 Oxygen Delivery Method Room Air Intake Visit Reasons: 3 months f/up Intake Note: Pt is here today for 3 months follow up visit on labs DM. Allergies lisinopril Allergy (Unknown, Verified 05/08/24 10:08) Cough Medication List - Last Reconciled 05/08/24 by Marysol Jefferson MD amlodipine-olmesartan 5-20 mg 1 tab PO DAILY atorvastatin 40 mg PO DAILY blood sugar diagnostic (FreeStyle Lite Strips) 1 strip miscellaneous DAILY blood-glucose meter (FreeStyle Lite Meter kit) use device to test blood sugar twice daily diabetic supplies, miscellan. diabetic shoes dimethicone 1.5% (Remedy Skin Repair) 1 appl topically with each episode of incontinence care; empagliflozin-linagliptin 25-5 mg (Glyxambi) 1 tab PO DAILY estradiol 0.01%(0.1mg/gram) (Estrace) 1 g vaginal 2XW famotidine (Pepcid) 20 mg PO DAILY fluconazole 150 mg PO Q3D 2 doses fluconazole 150 mg PO Q3D 2 doses glimepiride 1 mg PO DAILY hydrochlorothiazide 25 mg PO DAILY incontinence pad, liner, disp As directed lancets (FreeStyle Lancets) use 1 needle to test blood sugar twice daily metformin ER 1,500 mg (2 x 750 mg) PO DAILY metoprolol tartrate 50 mg PO DAILY mirabegron ER (Myrbetriq) 25 mg PO DAILY miscellaneous medical supply 1 ea miscellaneous .QD valacyclovir (Valtrex) 2,000 mg (2 x 1 gram) PO Q12H Tobacco use date assessed: 05/08/24 Fall risk assessment: No Falls in past year Last assessed Fall Risk: 05/08/24 Dental Screening Dental Screen Date: 05/25/23 HPI 3 months f/up HPI Details PATIENT PRESENTS FOR THE FOLLOW-UP OF TYPE 2 DIABETES HYPERTENSION HYPERLIPIDEMIA CHRONIC KIDNEY DISEASE STAGE 3. She complains of chronic daily right buttock pain radiating to right lower extremity worse when starting to walk. Patient completed physical therapy and has been doing daily home exercises. She is awaiting an appointment with neurosurgeon to discuss lumbar spine MRI findings possibly surgical intervention. [facility] Medical History (Updated 05/08/24 @ 10:42 by Marysol Jefferson MD) Annual physical exam Hyperlipemia Diabetes (~03/17/21) HTN (hypertension) Surgical History Status post ablation of incompetent vein using laser H/O colonoscopy Status post total shoulder arthroplasty Family History Father No problems noted. Mother No problems noted. Son No problems noted. Daughter No problems noted. Social History Housing: House Patient Tobacco Use Status: Never used Tobacco e-Cigarette/Vaping Use: Never Used service: No Current occupational status: retired Cognitive needs: No Hearing needs: No Vision needs: No Questionnaire Thrive Questionnaire Date Thrive assessed: 01/31/24 I am a: Patient What is your living situation today?: I have a steady place to live Within the past 12 months, did the food you bought not last and you didn't have the money to get more?: I choose not to answer this question Within the past 12 months, did you worry whether your food would run out before you got money to buy more?: I choose not to answer this question Do you have trouble paying for medicines?: I choose not to answer this question Do you have trouble getting transportation to medical appointments?: I choose not to answer this question Do you have trouble paying your heating and electricity bill?: I choose not to answer this question Do you have trouble taking care of your child, family member or friend?: I choose not to answer this question Do you have trouble with day-to-day activities such as bathing, preparing meals, shopping, managing finances, etc.?: I choose not to answer this question Are you interested in more education?: I choose not to answer this question Please select the resources that you would like help with: None Currently or been in a relationship where the following occur: No concerns reported THRIVE Score: 0 LALITA-7 AMB Questionnaire LALITA-7 Date LALITA - 7 assessed: 01/31/24 Source: Developed by Drs. Chico Colby, WinifredEldon Quintanilla and colleagues, with an educational sandra from [employer] Review of Systems Const All systems reviewed & are unremarkable except as noted in HPI and below Eyes Reports no additional complaints ENT Reports no additional complaints Card Reports no additional complaints Resp Reports no additional complaints GI Reports no additional complaints Physical exam (Primary Care) Vital Signs: Last Vital Signs Pulse 67 05/08/24 10:05 BP 124/68 05/08/24 10:05 Pulse Ox 97 05/08/24 10:05 Oxygen Delivery Method Room Air 05/08/24 10:05 BMI result Body Mass Index 25.7 Tobacco/Smoking Status: Tobacco use Status Tobacco use date assessed 05/08/24 05/08/24 10:09 Patient Tobacco Use Status Never used Tobacco 05/08/24 10:06 e-Cigarette/Vaping Use Never Used 05/08/24 10:06 Thrive Assessment: Date of Thrive Assessment Date Thrive assessed 01/31/24 05/08/24 10:06 Currently or been in a relationship where the following occur: No concerns reported Const General: no acute distress HENMT Head: Yes normal to inspection Throat: Yes posterior oropharynx normal Neck Neck: Yes no lymphadenopathy and Yes supple Resp Effort & Inspection: normal respiratory effort Auscultation: clear to auscultation bilaterally Cardio Rhythm: regular rhythm Heart sounds: S1 normal heart sound present and S2 normal heart sound present GI Inspection: Yes normal to inspection Palpation (GI): Soft to palpation Percussion: Yes normal to percussion Auscultation: normal bowel sounds Coding Level of Care Code Est Pt Level 4 (01766) Diagnoses HTN (hypertension) I10 Diabetes E11.9 Hyperlipemia E78.5 CKD stage 3a, GFR 45-59 ml/min N18.31 Lumbar spinal stenosis M48.061 Assessment & Plan Assessment & Plan (1) HTN (hypertension): Code(s): I10 - Essential (primary) hypertension Category: Medical Plan: Continue current medications (2) Diabetes: Onset Date: ~03/17/21 Comment: Type 2 Code(s): E11.9 - Type 2 diabetes mellitus without complications Category: Medical Plan: A1c is 7.6, ADA diet increase physical activity discussed with the patient. Glimepiride 1 mg daily will be added to current medications. Follow-up in 3 months with a fasting labs before (3) Hyperlipemia: Code(s): E78.5 - Hyperlipidemia, unspecified Category: Medical Plan: Continue statin (4) CKD stage 3a, GFR 45-59 ml/min: Code(s): N18.31 - Chronic kidney disease, stage 3a Category: Medical Plan: Avoid nephrotoxins monitor renal function (5) Lumbar spinal stenosis: Comment: MRI 02/2024 multilevel spondylolisthesis worse at L4-L5, grade 1 anterolisthesis compressing the neural elements of the thecal sac, pt will see Code(s): M48.061 - Spinal stenosis, lumbar region without neurogenic claudication Category: Medical Plan: Follow-up with neurosurgeon Orders: Orders Hemoglobin A1c 3 Months E11.9 - Type 2 diabetes mellitus without complications, E78.5 - Hyperlipidemia, unspecified, I10 - Essential (primary) hypertension, N18.31 - Chronic kidney disease, stage 3a Lipid Panel 3 Months E11.9 - Type 2 diabetes mellitus without complications, E78.5 - Hyperlipidemia, unspecified, I10 - Essential (primary) hypertension, N18.31 - Chronic kidney disease, stage 3a Comprehensive [place]. Panel Fast 3 Months E11.9 - Type 2 diabetes mellitus without complications, E78.5 - Hyperlipidemia, unspecified, I10 - Essential (primary) hypertension, N18.31 - Chronic kidney disease, stage 3a Complete Blood Count Auto Diff 3 Months E11.9 - Type 2 diabetes mellitus without complications, E78.5 - Hyperlipidemia, unspecified, I10 - Essential (primary) hypertension, N18.31 - Chronic kidney disease, stage 3a Microalbumin, Random (w Creat) 3 Months E11.9 - Type 2 diabetes mellitus without complications, E78.5 - Hyperlipidemia, unspecified, I10 - Essential (primary) hypertension, N18.31 - Chronic kidney disease, stage 3a Medications: New gabapentin 300 mg PO BID 180 caps 1RF glimepiride 1 mg PO DAILY 90 tabs 3RF Refilled valacyclovir (Valtrex) 2,000 mg (2 x 1 gram) PO Q12H 16 tabs 5RF Discontinued mirabegron ER (Myrbetriq) Discontinued Reason: Doctor's Order 25 mg PO DAILY 30 tabs 5RF valacyclovir (Valtrex) Discontinued Reason: Doctor's Order 2,000 mg (2 x 1 gram) PO Q12H 16 tabs 5RF fluconazole Discontinued Reason: Doctor's Order 150 mg PO Q3D 2 tabs 0RF
== END 2024-05-08 10:45 | disposition home or self-care (01) ==
PROVIDERS: PCP Internal Medicine; Visit Provider Internal Medicine
DX: I10 Essential (primary) hypertension (principal); E11.9 Type 2 diabetes mellitus without complications; E78.5 Hyperlipidemia, unspecified; N18.31 Chronic kidney disease, stage 3a; M48.061 Spinal stenosis, lumbar region without neurogenic claudication

== ENCOUNTER → 2024-05-08 10:00 | Outpatient (BNVA) | payer OTHER, SELFPAY | PROVIDERS: PCP Internal Medicine; Visit Provider Internal Medicine | DX: I12.9 Hypertensive chronic kidney disease with stage 1 through stage 4 chronic kidney disease, or unspecified chronic kidney disease (principal); E11.22 Type 2 diabetes mellitus with diabetic chronic kidney disease; E78.5 Hyperlipidemia, unspecified; N18.31 Chronic kidney disease, stage 3a; M48.061 Spinal stenosis, lumbar region without neurogenic claudication | CPT/HCPCS: 99212 ==

== ENCOUNTER 2024-08-04 08:54 | Outpatient (REF) | payer OTHER, SELFPAY ==
[2024-08-04 10:18] LABS: MANUAL DIFF FLAG NO
[2024-08-04 10:27] LABS: Basophils Percent Auto 0.4 % (0-2); Eosinophils Absolute Auto 0.3 X10*3/uL (0.0-0.4); Eosinophils Percent Auto 4.8 % (0-4); Hematocrit 42.6 % (37.0-47.0); Hemoglobin 14.1 g/dl (12.0-16.0); Imm Gran Abs Auto 0.01 X10*3/uL (0.00-0.03); Imm Gran Pct Auto 0.1 % (0.0-0.4); Lymphocytes Absolute Auto 2.4 X10*3/uL (1.2-4.9); Lymphocytes Percent Auto 33.6 % (20-40); Mean Corpuscular HGB Conc 33.1 g/dl (31.0-35.0); Mean Corpuscular Hemoglobin 28.7 pg (27.0-33.0); Mean Corpuscular Volume 86.8 fL (80.0-98.0); Mean Platelet Volume 10.4 fL (9.4-12.3); Monocytes Absolute Auto 0.4 X10*3/uL (0.1-1.2); Monocytes Percent Auto 5.7 % (2-11); Neutrophils Absolute Auto 3.9 x10*3/uL (2.0-8.3); Neutrophils Percent Auto 55.4 % (45-73); Platelet Count 233 X10*3/uL (160-400); Red Blood Count 4.91 X10*6/uL (4.20-5.50); Red Cell Distribution Width 13.5 % (11.0-16.0)
[2024-08-04 10:39] LABS: Estimated Average Glucose 151 mg/dL; Hemoglobin A1c % 6.9 % (<6.0)
[2024-08-04 11:04] LABS: Creatinine Urine 68.75 mg/dL; Microalbum/Creatinine Ratio Ur 21.8 ug/mg cr (<30)
[2024-08-04 11:23] LABS: Alanine Aminotransferase 16 U/L (0-31); Alkaline Phosphatase 46 U/L (39-117); Anion Gap 11 (12-20); Aspartate Amino Transferase 15 U/L (5-31); Bilirubin Total 0.6 mg/dL (0.0-1.0); Blood Urea Nitrogen 26 mg/dL (9-16); Calcium 9.4 mg/dL (8.4-10.2); Carbon Dioxide 26 mmol/L (22-29); Chloride 106 mmol/L (96-108); Cholesterol 154 mg/dL (<200); Estimated Glomerular Filt Rate 49; Glucose Fasting 160 mg/dL (60-99); HDL Cholesterol 37 mg/dL (>40); LDL Cholesterol Calculated 71 mg/dL (<100); Potassium 4.3 mmol/L (3.3-5.1); Sodium 139 mmol/L (135-145); Total Protein 7.1 g/dL (6.5-8.0); Triglycerides 231 mg/dL (<150)
== END 2024-08-04 08:55 | disposition home or self-care (01) ==
LOC: HO.HMGCLDS 08:54
PROVIDERS: PCP Internal Medicine; Visit Provider Internal Medicine
DX: I10 Essential (primary) hypertension (principal); E11.9 Type 2 diabetes mellitus without complications; E78.5 Hyperlipidemia, unspecified; N18.31 Chronic kidney disease, stage 3a
CPT/HCPCS: 36415; 80053; 80061; 82043; 82570; 83036; 85025

== ENCOUNTER 2024-08-09 09:57 | Outpatient (AMB) | payer OTHER, SELFPAY ==
--- NOTE | 2024-08-09 10:04 | A.OFFPC_ITS ---
Vital Signs 08/09/24 10:05 Height 5 ft 3 in Weight 146 lb BMI 25.9 BP 126/74 Blood Pressure Location Lt brachial Position Sitting Respiration 18 Pulse 64 Pulse Source Pulse Oximeter Temp 98.0 F Temp Source Oral Pulse Oximetry (%) 98 Oxygen Delivery Method Room Air Intake Visit Reasons: 3m follow up Intake Note: Pt is here today for 3 months follow up visit on DM. Allergies lisinopril Allergy (Unknown, Verified 08/09/24 10:06) Cough Medication List - Last Reconciled 08/09/24 by Marysol Jefferson MD amlodipine-olmesartan 5-20 mg 1 tab PO DAILY atorvastatin 40 mg PO DAILY blood sugar diagnostic (FreeStyle Lite Strips) 1 strip miscellaneous DAILY blood-glucose meter (FreeStyle Lite Meter kit) use device to test blood sugar twice daily diabetic supplies, miscellan. diabetic shoes dimethicone 1.5% (Remedy Skin Repair) 1 appl topically with each episode of incontinence care; empagliflozin-linagliptin 25-5 mg (Glyxambi) 1 tab PO DAILY estradiol 0.01%(0.1mg/gram) (Estrace) 1 g vaginal 2XW famotidine (Pepcid) 20 mg PO DAILY fluconazole 150 mg PO Q3D 2 doses gabapentin 300 mg PO BID glimepiride 1 mg PO DAILY hydrochlorothiazide 25 mg PO DAILY incontinence pad, liner, disp As directed lancets (FreeStyle Lancets) use 1 needle to test blood sugar twice daily metformin ER 1,500 mg (2 x 750 mg) PO DAILY metoprolol tartrate 50 mg PO DAILY miscellaneous medical supply 1 ea miscellaneous .QD valacyclovir (Valtrex) 2,000 mg (2 x 1 gram) PO Q12H Tobacco use date assessed: 08/09/24 Fall risk assessment: No Falls in past year Last assessed Fall Risk: 08/09/24 Dental Screening Dental Screen Date: 08/09/24 Did you have a dental visit in the last 12 months?: No Did you have a dental problem in the last 6 months where you did not have access to dental care?: No Was dental information given to patient?: Patient declined HPI 3m follow up HPI Details Patient presents for the follow-up of type 2 diabetes hypertension hyperlipidemia chronic kidney disease stage 3 stable on medications. She will have lumbar spine surgery for chronic sciatica in September. [facility] Medical History Annual physical exam Hyperlipemia Diabetes (~03/17/21) HTN (hypertension) Surgical History Status post ablation of incompetent vein using laser H/O colonoscopy Status post total shoulder arthroplasty Family History Father No problems noted. Mother No problems noted. Son No problems noted. Daughter No problems noted. Social History Housing: House Patient Tobacco Use Status: Never used Tobacco e-Cigarette/Vaping Use: Never Used service: No Current occupational status: retired Cognitive needs: No Hearing needs: No Vision needs: No Questionnaire PHQ-9 Over the last 2 weeks, how often have you been bothered by any of the following problems? 1. Little interest or pleasure in doing things: not at all 2. Feeling down, depressed, or hopeless: not at all 3. Trouble falling or staying asleep, or sleeping too much: not at all 4. Feeling tired or having little energy: not at all 5. Poor appetite or overeating: not at all 6. Feeling bad about yourself - or that you are a failure or have let yourself or your family down: not at all 7. Trouble concentrating on things, such as reading the newspaper or watching television: not at all 8. Moving or speaking so slowly that other people could have noticed. Or the opposite - being so fidgety or restless that you have been moving around a lot more than usual: not at all 9. Thoughts that you would be better off or of hurting yourself in some way: not at all Total score: 0 Depression Screening Interpretation: Negative Depression Screening Done: Yes 71007 - PHQ-9 Billing: Yes Source: Developed by Drs. Chico Colby, Winifred Lloyd, Eldon Berg and colleagues, with an educational sandra from [employer]. Thrive Questionnaire Date Thrive assessed: 08/09/24 I am a: Patient What is your living situation today?: I have a steady place to live Within the past 12 months, did the food you bought not last and you didn't have the money to get more?: Never true Within the past 12 months, did you worry whether your food would run out before you got money to buy more?: Never true Do you have trouble paying for medicines?: No Do you have trouble getting transportation to medical appointments?: No Do you have trouble paying your heating and electricity bill?: No Do you have trouble taking care of your child, family member or friend?: No Do you have trouble with day-to-day activities such as bathing, preparing meals, shopping, managing finances, etc.?: No Are you currently unemployed and looking for a job?: No Are you interested in more education?: No Please select the resources that you would like help with: None THRIVE Score: 0 LALITA-7 AMB Questionnaire LALITA-7 Date LALITA - 7 assessed: 08/09/24 Feeling nervous, anxious, or on edge: 0 = Not at all Not being able to stop or control worryin = Not at all Worrying too much about different things: 0 = Not at all Trouble relaxin = Not at all Being so restless that it is hard to sit still: 0 = Not at all Becoming easily annoyed or irritable: 0 = Not at all Feeling afraid as if something awful might happen: 0 = Not at all Total LALITA-7 score (0-4 normal; 5-9 mild; 10-14 moderate; 15-21 severe): 0 Source: Developed by Drs. Chico Colby, Winifred Lloyd, Eldon Berg and colleagues, with an educational sandra from [employer]. LALITA-7 Assessment Billing LALITA-7 Assessment Tool: LALITA-7 Assessment 29562 Review of Systems Const All systems reviewed & are unremarkable except as noted in HPI and below Eyes Reports no additional complaints ENT Reports no additional complaints Card Reports no additional complaints Resp Reports no additional complaints GI Reports no additional complaints Physical exam (Primary Care) Vital Signs: Last Vital Signs Temp 98.0 F 08/09/24 10:05 Pulse 64 08/09/24 10:05 Resp 18 08/09/24 10:05 BP 126/74 08/09/24 10:05 Pulse Ox 98 08/09/24 10:05 Oxygen Delivery Method Room Air 04/02/25 10:05 BMI result Body Mass Index 25.9 Tobacco/Smoking Status: Tobacco use Status Tobacco use date assessed 08/09/24 08/09/24 10:10 Patient Tobacco Use Status Never used Tobacco 08/09/24 10:10 e-Cigarette/Vaping Use Never Used 08/09/24 10:05 PHQ-9: PHQ-9 Score PHQ-9: Total score 0 08/09/24 10:10 Depression Screening Interpretation: Negative Thrive Assessment: Date of Thrive Assessment Date Thrive assessed 08/09/24 08/09/24 10:10 Const General: no acute distress HENMT Head: Yes normal to inspection Neck Neck: Yes supple Resp Effort & Inspection: normal respiratory effort Auscultation: clear to auscultation bilaterally Cardio Rhythm: regular rhythm Heart sounds: S1 normal heart sound present and S2 normal heart sound present GI Inspection: Yes normal to inspection Palpation (GI): Soft to palpation Percussion: Yes normal to percussion Auscultation: normal bowel sounds Extrem General: Yes no clubbing, cyanosis or edema Coding Level of Care Code Est Pt Level 4 (04093) Diagnoses Diabetes E11.9 CKD stage 3a, GFR 45-59 ml/min N18.31 HTN (hypertension) I10 Hyperlipemia E78.5 Additional Codes LALITA-7 Assessment Billing - LALITA-7 Assessment Tool: LALITA-7 Assessment 97251 ([id number]) PHQ-9 - 19457 - PHQ-9 Billing: Yes ([id number]) Assessment & Plan Assessment & Plan (1) Diabetes: Onset Date: ~03/17/21 Comment: Type 2 Code(s): E11.9 - Type 2 diabetes mellitus without complications Category: Medical Plan: A1c is 6.9, continue ADA diet current medications regular exercise follow-up in 4 months with a fasting labs before (2) CKD stage 3a, GFR 45-59 ml/min: Code(s): N18.31 - Chronic kidney disease, stage 3a Category: Medical Plan: Avoid nephrotoxins monitor renal function (3) HTN (hypertension): Code(s): I10 - Essential (primary) hypertension Category: Medical Plan: Continue current medications (4) Hyperlipemia: Code(s): E78.5 - Hyperlipidemia, unspecified Category: Medical Plan: Continue statin Orders: Orders Microalbumin, Random (w Creat) 4 Months E11.9 - Type 2 diabetes mellitus without complications, E78.5 - Hyperlipidemia, unspecified, I10 - Essential (primary) hypertension, N18.31 - Chronic kidney disease, stage 3a Complete Blood Count Auto Diff 4 Months E11.9 - Type 2 diabetes mellitus without complications, E78.5 - Hyperlipidemia, unspecified, I10 - Essential (primary) hypertension, N18.31 - Chronic kidney disease, stage 3a Comprehensive [place]. Panel Fast 4 Months E11.9 - Type 2 diabetes mellitus without complications, E78.5 - Hyperlipidemia, unspecified, I10 - Essential (primary) hypertension, N18.31 - Chronic kidney disease, stage 3a Hemoglobin A1c 4 Months E11.9 - Type 2 diabetes mellitus without complications, E78.5 - Hyperlipidemia, unspecified, I10 - Essential (primary) hypertension, N18.31 - Chronic kidney disease, stage 3a Lipid Panel 4 Months E11.9 - Type 2 diabetes mellitus without complications, E78.5 - Hyperlipidemia, unspecified, I10 - Essential (primary) hypertension, N18.31 - Chronic kidney disease, stage 3a
[2024-08-09 10:05] VITALS: BP 126/74; PULSE 64; RESP 18; TEMP 36.7; O2SAT 98; BMI 25.9
== END 2024-08-09 10:33 | disposition home or self-care (01) ==
LOC: HO.HMCC 09:57
PROVIDERS: PCP Internal Medicine; Visit Provider Internal Medicine
DX: E11.9 Type 2 diabetes mellitus without complications (principal); N18.31 Chronic kidney disease, stage 3a; I10 Essential (primary) hypertension; E78.5 Hyperlipidemia, unspecified

== ENCOUNTER → 2024-08-09 09:57 | Outpatient (BNVA) | payer OTHER, SELFPAY | PROVIDERS: PCP Internal Medicine; Visit Provider Internal Medicine | DX: I12.9 Hypertensive chronic kidney disease with stage 1 through stage 4 chronic kidney disease, or unspecified chronic kidney disease (principal); E11.22 Type 2 diabetes mellitus with diabetic chronic kidney disease; N18.31 Chronic kidney disease, stage 3a; E78.5 Hyperlipidemia, unspecified | CPT/HCPCS: 96127; 99212 ==

== ENCOUNTER 2025-01-13 08:03 | Outpatient (REF) | payer OTHER, SELFPAY ==
[2025-01-13 11:09] LABS: MANUAL DIFF FLAG NO
[2025-01-13 11:10] LABS: Hematocrit 41.0 % (37.0-47.0); Hemoglobin 13.8 g/dl (12.0-16.0); Imm Gran Abs Auto 0.02 X10*3/uL (0.00-0.03); Imm Gran Pct Auto 0.2 % (0.0-0.4); Lymphocytes Absolute Auto 2.6 X10*3/uL (1.2-4.9); Mean Corpuscular HGB Conc 33.7 g/dl (31.0-35.0); Mean Corpuscular Hemoglobin 29.0 pg (27.0-33.0); Mean Corpuscular Volume 86.1 fL (80.0-98.0); NRBC Abs Auto 0.000 X10*3/uL (0.0-0.012); NRBC Pct Auto 0.0 /100WBC (0.0-0.2); Platelet Count 222 X10*3/uL (160-400); Red Blood Count 4.76 X10*6/uL (4.20-5.50); White Blood Count 8.3 X10*3/uL (4.8-10.8)
[2025-01-13 11:35] LABS: Hemoglobin A1C 197.6448 umol/L; Total Hemoglobin (HGBA1C) 3616.3185 umol/L
[2025-01-13 11:41] LABS: Alanine Aminotransferase 15 U/L (0-31); Albumin Level 4.1 g/dL (3.5-5.0); Alkaline Phosphatase 57 U/L (39-117); Anion Gap 12 (12-20); Aspartate Amino Transferase 22 U/L (5-31); Blood Urea Nitrogen 19 mg/dL (9-16); Calcium 9.1 mg/dL (8.4-10.2); Carbon Dioxide 25 mmol/L (22-29); Chloride 104 mmol/L (96-108); Cholesterol 156 mg/dL (<200); Estimated Glomerular Filt Rate 51; HDL Cholesterol 38 mg/dL (>40); Potassium 4.2 mmol/L (3.3-5.1); Sodium 137 mmol/L (135-145); Total Protein 6.9 g/dL (6.5-8.0); Triglycerides 210 mg/dL (<150)
== END 2025-01-13 08:04 | disposition home or self-care (01) ==
LOC: HO.HMGCLDS 08:03
PROVIDERS: PCP Internal Medicine; Visit Provider Internal Medicine
DX: I12.9 Hypertensive chronic kidney disease with stage 1 through stage 4 chronic kidney disease, or unspecified chronic kidney disease (principal); E11.22 Type 2 diabetes mellitus with diabetic chronic kidney disease; N18.31 Chronic kidney disease, stage 3a; E78.5 Hyperlipidemia, unspecified
CPT/HCPCS: 36415; 80053; 80061; 82043; 82570; 83036; 85025

== ENCOUNTER 2025-01-17 11:31 | Outpatient (AMB) | payer OTHER, SELFPAY ==
--- NOTE | 2025-01-17 11:36 | MHC.PC.OV ---
Vital Signs 01/17/25 11:37 Height 5 ft 3 in Weight 149 lb BMI 26.4 BP 122/74 Blood Pressure Location Lt brachial Position Sitting Respiration 18 Pulse 62 Pulse Source Pulse Oximeter Temp 98.3 F Temp Source Oral Pulse Oximetry (%) 97 Oxygen Delivery Method Room Air Intake Visit Reasons: dm Intake Note: Pt is here today for a follow up visit on DM and labs. Allergies lisinopril Allergy (Unknown, Verified 01/17/25 11:39) Cough Medication List - Last Reconciled 01/17/25 by Marysol Jefferson MD amlodipine-olmesartan 5-20 mg 1 tab PO DAILY atorvastatin 40 mg PO DAILY blood sugar diagnostic (FreeStyle Lite Strips) 1 strip miscellaneous DAILY blood-glucose meter (FreeStyle Lite Meter kit) use device to test blood sugar twice daily diabetic supplies, miscellan. diabetic shoes dimethicone 1.5% (Remedy Skin Repair) 1 appl topically with each episode of incontinence care; empagliflozin-linagliptin 25-5 mg (Glyxambi) 1 tab PO DAILY estradiol 0.01%(0.1mg/gram) (Estrace) 1 g vaginal 2XW famotidine (Pepcid) 20 mg PO DAILY fluconazole 150 mg PO Q3D 2 doses glimepiride 2 mg PO QAM hydrochlorothiazide 25 mg PO DAILY incontinence pad, liner, disp As directed lancets (FreeStyle Lancets) use 1 needle to test blood sugar twice daily metformin ER 1,500 mg (2 x 750 mg) PO DAILY metoprolol tartrate 50 mg PO DAILY miscellaneous medical supply 1 ea miscellaneous .QD valacyclovir (Valtrex) 2,000 mg (2 x 1 gram) PO Q12H Tobacco use date assessed: 01/17/25 Fall risk assessment: No Falls in past year Last assessed Fall Risk: 01/17/25 Dental Screening Dental Screen Date: 08/09/24 HPI dm HPI Details Patient presents for the follow-up of type 2 diabetes hyperlipidemia hypertension stable on current medications. [facility] Medical History (Updated 01/17/25 @ 12:12 by Marysol Jefferson MD) Lumbar spinal stenosis Annual physical exam Hyperlipemia Diabetes (~03/17/21) HTN (hypertension) Surgical History Status post ablation of incompetent vein using laser H/O colonoscopy Status post total shoulder arthroplasty Family History Father No problems noted. Mother No problems noted. Son No problems noted. Daughter No problems noted. Social History Housing: House Patient Tobacco Use Status: Never used Tobacco e-Cigarette/Vaping Use: Never Used service: No Current occupational status: retired Cognitive needs: No Hearing needs: No Vision needs: No Questionnaire PHQ-9 Over the last 2 weeks, how often have you been bothered by any of the following problems? 1. Little interest or pleasure in doing things: not at all 2. Feeling down, depressed, or hopeless: not at all 3. Trouble falling or staying asleep, or sleeping too much: not at all 4. Feeling tired or having little energy: not at all 5. Poor appetite or overeating: not at all 6. Feeling bad about yourself - or that you are a failure or have let yourself or your family down: not at all 7. Trouble concentrating on things, such as reading the newspaper or watching television: not at all 8. Moving or speaking so slowly that other people could have noticed. Or the opposite - being so fidgety or restless that you have been moving around a lot more than usual: not at all 9. Thoughts that you would be better off or of hurting yourself in some way: not at all Total score: 0 Depression Screening Interpretation: Negative Depression Screening Done: Yes Source: Developed by Drs. Chico Colby, Winifred Lloyd, Eldon Berg and colleagues, with an educational sandra from [employer]. Thrive Questionnaire Date Thrive assessed: 01/14/25 I am a: Patient What is your living situation today?: I have a steady place to live Within the past 12 months, did the food you bought not last and you didn't have the money to get more?: Never true Within the past 12 months, did you worry whether your food would run out before you got money to buy more?: I choose not to answer this question Do you have trouble paying for medicines?: No Do you have trouble getting transportation to medical appointments?: No Do you have trouble taking care of your child, family member or friend?: No Do you have trouble with day-to-day activities such as bathing, preparing meals, shopping, managing finances, etc.?: Yes Are you currently unemployed and looking for a job?: I choose not to answer this question Are you interested in more education?: No Please select the resources that you would like help with: None Currently or been in a relationship where the following occur: No concerns reported THRIVE Score: 0 AUDIT C Alcohol Use Questionnaire (AUDIT-C) 1. How often do you have a drink containing alcohol?: 2-4 times a month 2. How many drinks containing alcohol do you have on a typical day when you are drinking?: 1 or 2 3. How often do you have six or more drinks on one occasion?: Never Total Score: 2 LALITA-7 AMB Questionnaire LALITA-7 Date LALITA - 7 assessed: 08/09/24 Feeling nervous, anxious, or on edge: 0 = Not at all Not being able to stop or control worryin = Not at all Worrying too much about different things: 1 = Several days Trouble relaxin = Not at all Being so restless that it is hard to sit still: 0 = Not at all Becoming easily annoyed or irritable: 0 = Not at all Feeling afraid as if something awful might happen: 0 = Not at all Total LALITA-7 score (0-4 normal; 5-9 mild; 10-14 moderate; 15-21 severe): 1 Source: Developed by Drs. Chico Colby, Winifred Lloyd, Eldon Berg and colleagues, with an educational sandra from [employer]. Review of Systems Const All systems reviewed & are unremarkable except as noted in HPI and below Eyes Reports no additional complaints ENT Reports no additional complaints Card Reports no additional complaints Resp Reports no additional complaints GI Reports no additional complaints Reports no additional complaints Physical exam (Primary Care) Vital Signs: Last Vital Signs Temp 98.3 F 01/17/25 11:37 Pulse 62 01/17/25 11:37 Resp 18 01/17/25 11:37 BP 122/74 01/17/25 11:37 Pulse Ox 97 01/17/25 11:37 Oxygen Delivery Method Room Air 01/17/25 11:37 BMI result Body Mass Index 26.4 Tobacco/Smoking Status: Tobacco use Status Tobacco use date assessed 01/17/25 01/17/25 11:42 Patient Tobacco Use Status Never used Tobacco 01/17/25 11:36 e-Cigarette/Vaping Use Never Used 01/17/25 11:36 PHQ-9: PHQ-9 Score PHQ-9: Total score 0 01/17/25 11:49 Depression Screening Interpretation: Negative Thrive Assessment: Date of Thrive Assessment Date Thrive assessed 01/14/25 01/17/25 11:36 Currently or been in a relationship where the following occur: No concerns reported Const General: no acute distress HENMT Head: Yes normal to inspection Face and sinus: Yes normal facial exam Throat: Yes posterior oropharynx normal Resp Effort & Inspection: normal respiratory effort Auscultation: clear to auscultation bilaterally Cardio Rhythm: regular rhythm Heart sounds: S1 normal heart sound present and S2 normal heart sound present GI Inspection: Yes normal to inspection Palpation (GI): Soft to palpation Percussion: Yes normal to percussion Auscultation: normal bowel sounds Coding Level of Care Code Est Pt Level 4 (06856) Diagnoses HTN (hypertension) I10 Diabetes E11.9 CKD stage 3a, GFR 45-59 ml/min N18.31 Hyperlipemia E78.5 Assessment & Plan Assessment & Plan (1) HTN (hypertension): Code(s): I10 - Essential (primary) hypertension Category: Medical Plan: Continue current medications (2) Diabetes: Onset Date: ~03/17/21 Comment: Type 2 Code(s): E11.9 - Type 2 diabetes mellitus without complications Category: Medical Plan: A1c is 7.3, ADA diet increase exercise discussed with the patient increase glimepiride to 2 mg a day continue the rest of her medications, follow-up in 4 months with a fasting labs before (3) CKD stage 3a, GFR 45-59 ml/min: Code(s): N18.31 - Chronic kidney disease, stage 3a Category: Medical Plan: Monitor renal function avoid nephrotoxins (4) Hyperlipemia: Code(s): E78.5 - Hyperlipidemia, unspecified Category: Medical Plan: Continue statin Orders: Orders Comprehensive [place]. Panel Fast 4 Months E11.9 - Type 2 diabetes mellitus without complications, I10 - Essential (primary) hypertension, N18.31 - Chronic kidney disease, stage 3a Complete Blood Count Auto Diff 4 Months E11.9 - Type 2 diabetes mellitus without complications, I10 - Essential (primary) hypertension, N18.31 - Chronic kidney disease, stage 3a Hemoglobin A1c 4 Months E11.9 - Type 2 diabetes mellitus without complications, I10 - Essential (primary) hypertension, N18.31 - Chronic kidney disease, stage 3a Microalbumin, Random (w Creat) 4 Months E11.9 - Type 2 diabetes mellitus without complications, I10 - Essential (primary) hypertension, N18.31 - Chronic kidney disease, stage 3a Lipid Panel 4 Months E11.9 - Type 2 diabetes mellitus without complications, I10 - Essential (primary) hypertension, N18.31 - Chronic kidney disease, stage 3a Medications: New glimepiride administer with breakfast 2 mg PO QAM 90 tabs 1RF fluconazole 150 mg PO Q3D 10 tabs 0RF 2 doses Refilled famotidine (Pepcid) 20 mg PO DAILY 90 tabs 0RF Discontinued gabapentin Discontinued Reason: Doctor's Order 300 mg PO BID 180 caps 1RF fluconazole Discontinued Reason: Doctor's Order 150 mg PO Q3D 4 tabs 3RF glimepiride Discontinued Reason: Doctor's Order 1 mg PO DAILY 90 tabs 3RF
[2025-01-17 11:37] VITALS: BP 122/74; PULSE 62; RESP 18; TEMP 36.8; O2SAT 97; BMI 26.4
== END 2025-01-17 12:10 | disposition home or self-care (01) ==
LOC: HO.HMCC 11:32
PROVIDERS: PCP Internal Medicine; Visit Provider Internal Medicine
DX: I10 Essential (primary) hypertension (principal); E11.9 Type 2 diabetes mellitus without complications; N18.31 Chronic kidney disease, stage 3a; E78.5 Hyperlipidemia, unspecified

== ENCOUNTER → 2025-01-17 11:31 | Outpatient (BNVA) | payer OTHER, SELFPAY | PROVIDERS: PCP Internal Medicine; Visit Provider Internal Medicine | DX: E11.22 Type 2 diabetes mellitus with diabetic chronic kidney disease (principal); I12.9 Hypertensive chronic kidney disease with stage 1 through stage 4 chronic kidney disease, or unspecified chronic kidney disease; N18.31 Chronic kidney disease, stage 3a; E78.5 Hyperlipidemia, unspecified; Z79.899 Other long term (current) drug therapy | CPT/HCPCS: 99212 ==

== ENCOUNTER 2025-02-07 09:37 | Outpatient (REF) | payer OTHER, SELFPAY | END 2025-02-07 09:38 | disposition home or self-care (01) | LOC: HO.MAMMO 09:37 | PROVIDERS: PCP Internal Medicine; Visit Provider Internal Medicine | DX: Z12.31 Encounter for screening mammogram for malignant neoplasm of breast (principal) | CPT/HCPCS: 77063; 77067 ==

== ENCOUNTER → 2025-02-07 10:00 | Outpatient (BNV) | payer OTHER, SELFPAY | PROVIDERS: PCP Internal Medicine; Visit Provider Internal Medicine | DX: Z12.31 Encounter for screening mammogram for malignant neoplasm of breast (principal) | CPT/HCPCS: 77063; 77067 ==